=== PATIENT | female | born 1955 | race Caucasian/White ===

== ENCOUNTER 2017-10-26 23:57 | Inpatient (IN) | payer MEDICARE, OTHER ==
[~2017-10-26] VITALS: Ht 160 cm; Wt 95.5 kg
[~2017-10-26 23:57] MED LIST: LISI-230 PO; PREVCR VG
[2017-10-27] MEDS ORDERED: normal saline 1000ML IV soln IVB ONE (00:25)
[2017-10-27 01:11] LABS: BASOPHILS # (AUTO) 0.2 X10'3 (0-0.2); BASOPHILS % (AUTO) 0.9 % (0-1); EOSINOPHILS % (AUTO) 0.1 % (0-6); HEMATOCRIT 35.8 % (35.0-45.0); HEMOGLOBIN 12.1 g/dl (12.0-16.0); LYMPHOCYTES # (AUTO) 0.7 X10'3 (1.1-4.8); MEAN CORPUSCULAR HEMOGLOBIN 33.4 PG (27.0-31.0); MEAN CORPUSCULAR HGB CONC 33.9 % (33.0-36.5); MEAN CORPUSCULAR VOLUME 98.6 FL (78-98); MEAN PLATELET VOLUME 8.9 FL (7.4-10.4); MONOCYTES # (AUTO) 0.9 X10'3 (0-0.9); MONOCYTES % (AUTO) 4.1 % (2-12); NEUTROPHILS # (AUTO) 21.1 X10'3 (1.8-7.7); NEUTROPHILS % (AUTO) 91.9 % (42-75); PLATELET COUNT 260 X10'3 (140-440); RED BLOOD COUNT 3.63 X10'6 (4.20-5.60); RED CELL DISTRIBUTION WIDTH 16.1 % (11.5-14.5); WHITE BLOOD COUNT 22.9 X10'3 (4.5-11.0)
[2017-10-27 01:14] LABS: INR 0.9 INR; PARTIAL THROMBOPLASTIN TIME 24 SECONDS (22-32); PROTHROMBIN TIME 9.8 SECONDS (9.0-12.0)
[2017-10-27 01:17] LABS: ANION GAP 7 (8-16); BLOOD UREA NITROGEN 25 MG/DL (7-18); BUN/CREATININE RATIO 19.7 (6.6-38.0); CHLORIDE 105 MMOL/L (99-107); CREATININE 1.27 MG/DL (0.40-0.90); GLUCOSE 155 MG/DL (70-104); POTASSIUM 4.5 MMOL/L (3.5-5.1); SODIUM 139 MMOL/L (135-145)
[2017-10-27 01:18] LABS: ALANINE AMINOTRANSFERASE 22 U/L (12-78); ALBUMIN 3.2 G/DL (3.4-5.0); ALBUMIN/GLOBULIN RATIO 0.9 (1.1-1.5); ALKALINE PHOSPHATASE 120 IU/L (46-116); ASPARTATE AMINO TRANSFERASE 17 U/L (10-37); BILIRUBIN,TOTAL 0.4 MG/DL (0.1-1.0); LIPASE 192 U/L (73-393); MAGNESIUM 1.4 MG/DL (1.5-2.4); TOTAL PROTEIN 6.7 G/DL (6.4-8.2); eGFR 42 ML/MIN
[2017-10-27 01:24] LABS: PLATELET ESTIMATE NORMAL; TOTAL CELLS COUNTED 100
[2017-10-27] MEDS ORDERED: metroNIDAZOLE 500mg tablet PO ONE (01:55)
[2017-10-27] MEDS ORDERED: ondansetron/PF 4mg/2ml inj IV PRN (02:25)
[2017-10-27] MEDS ORDERED: acetaminophen 650mg rectal suppository RC PRN (02:25)
[2017-10-27] MEDS ORDERED: bisacodyl 10mg suppository rectal RC PRN (02:25)
[2017-10-27] MEDS ORDERED: HYDROmorphone 1 mg/ml syringe IV PRN ×2 (02:25)
[2017-10-27] MEDS ORDERED: acetaminophen 325mg tablet PO PRN (02:25)
[2017-10-27] MEDS ORDERED: magnesium 2GM in 50ml NS 50 ML IV PRN (02:25)
[2017-10-27] MEDS ORDERED: diphenhydrAMINE 25mg capsule PO PRN (02:25)
[2017-10-27] MEDS ORDERED: metoclopramide 5 mg/ml inj IV PRN (02:25)
[2017-10-27] MEDS ORDERED: mag hydrox/Alum hydrox/simeth 30ml oral suspension PO PRN (02:25)
[2017-10-27] MEDS ORDERED: morphine sulfate 8 MG/ML SYRINGE IV PRN ×2 (02:25)
[2017-10-27] MEDS ORDERED: magnesium 4gm in 100ml NS 100 ML IV PRN (02:25)
[2017-10-27] MEDS ORDERED: diphenhydrAMINE 50 mg/ml inj IV PRN (02:25)
[2017-10-27] MEDS ORDERED: magnesium hydroxide 30ml (MOM) UD suspension PO PRN (02:25)
[2017-10-27] MEDS ORDERED: magnesium Cl slow-release 64mg tablet PO PRN (02:25)
[2017-10-27 02:31] LABS: CLARITY,URINE Clear (Clear); COLOR,URINE Yellow (Yellow); GLUCOSE, URINE Negative (Neg); KETONES,URINE Negative (Neg); LEUKOCYTE ESTERASE ,URINE Negative (Neg); NITRITES, URINE Negative (Neg); OCCULT BLOOD,URINE Negative (Neg); PROTEIN,URINE Negative (Neg); UROBILINOGEN,URINE 0.2 E.U/dL (0.2-1.0)
[2017-10-27 02:32] LABS: UA COLLECTION TYPE CLN CATCH MIDSTREAM
[2017-10-27 02:45] LABS: URINE AMPHETAMINE SCREEN NEGATIVE (Neg); URINE BARBITUATE SCREEN NEGATIVE (Neg); URINE BENZODIAZEPINES SCREEN NEGATIVE (Neg); URINE CANNABINOID SCREEN NEGATIVE (Neg); URINE COCAINE SCREEN NEGATIVE (Neg); URINE METHADONE SCREEN NEGATIVE (Neg); URINE OPIATE SCREEN NEGATIVE (Neg); URINE PHENCYCLIDINE SCREEN NEGATIVE (Neg)
[2017-10-27 03:15] VITALS: BP 148/70
[2017-10-27] MEDS: HYDROcodone/acetaminophen 10/325mg tab PO PRN ×2 (03:31→20:23)
[2017-10-27] MEDS: normal saline 1000ml 1,000 ML IV SCH ×3 (04:49→23:44)
[2017-10-27 07:03] VITALS: BP 136/68
[2017-10-27] MEDS: docusate sod 100mg capsule PO SCH ×2 (08:00→20:00)
[2017-10-27 09:06] LABS: OCCULT BLOOD STOOL NEGATIVE (Neg)
[2017-10-27] MEDS: levoFLOXACIN-Levaquin 500mg/D5 100 ML IV SCH (09:39)
[2017-10-27] MEDS: heparin, porcine 5000 units/ml vial SQ SCH ×2 (09:40→20:23)
[2017-10-27] MEDS: pantoprazole 40mg Tablet.DR PO SCH (09:40)
[2017-10-27 12:23] VITALS: BP 149/71
[2017-10-27] MEDS: vancomycin 250MG/10ML UD oral solution 10ML BOTTLE PO SCH ×2 (15:42→20:23)
[2017-10-27] MEDS: lactobacillus rhamnosus 10,000 MMU CELLS/CAPSULE PO SCH (16:40)
[2017-10-27 18:00] VITALS: BP 126/59
[2017-10-27 20:00] VITALS: BP 126/59
[2017-10-27] MEDS ORDERED: temazepam 15mg capsule PO PRN (21:00)
[2017-10-28] VITALS: BP 110/66
[2017-10-28] MEDS: vancomycin 250MG/10ML UD oral solution 10ML BOTTLE PO SCH ×4 (02:45→20:09)
[2017-10-28 05:40] LABS: BASOPHILS % (AUTO) 0.3 % (0-1); EOSINOPHILS # (AUTO) 0.4 X10'3 (0-0.9); EOSINOPHILS % (AUTO) 2.8 % (0-6); HEMOGLOBIN 9.9 g/dl (12.0-16.0); LYMPHOCYTES # (AUTO) 1.8 X10'3 (1.1-4.8); LYMPHOCYTES % (AUTO) 13.9 % (21-51); MEAN CORPUSCULAR HEMOGLOBIN 33.2 PG (27.0-31.0); MEAN CORPUSCULAR HGB CONC 32.8 % (33.0-36.5); MEAN PLATELET VOLUME 8.5 FL (7.4-10.4); MONOCYTES # (AUTO) 0.9 X10'3 (0-0.9); MONOCYTES % (AUTO) 6.8 % (2-12); NEUTROPHILS # (AUTO) 9.6 X10'3 (1.8-7.7); NEUTROPHILS % (AUTO) 76.2 % (42-75); PLATELET COUNT 194 X10'3 (140-440); RED BLOOD COUNT 2.97 X10'6 (4.20-5.60); RED CELL DISTRIBUTION WIDTH 16.6 % (11.5-14.5); WHITE BLOOD COUNT 12.6 X10'3 (4.5-11.0)
[2017-10-28 06:10] LABS: ALANINE AMINOTRANSFERASE 16 U/L (12-78); ALBUMIN 2.3 G/DL (3.4-5.0); ALBUMIN/GLOBULIN RATIO 0.7 (1.1-1.5); ALKALINE PHOSPHATASE 95 IU/L (46-116); ANION GAP 5 (8-16); ASPARTATE AMINO TRANSFERASE 14 U/L (10-37); BILIRUBIN,TOTAL 0.4 MG/DL (0.1-1.0); BLOOD UREA NITROGEN 23 MG/DL (7-18); CALCIUM 8.8 MG/DL (8.5-10.1); CHLORIDE 109 MMOL/L (99-107); GLUCOSE 120 MG/DL (70-104); MAGNESIUM 1.6 MG/DL (1.5-2.4); POTASSIUM 4.6 MMOL/L (3.5-5.1); SODIUM 140 MMOL/L (135-145); TOTAL CARBON DIOXIDE 26.4 MMOL/L (24-32); TOTAL PROTEIN 5.8 G/DL (6.4-8.2); eGFR 56 ML/MIN
[2017-10-28 07:00] VITALS: BP 101/54
[2017-10-28] MEDS: pantoprazole 40mg Tablet.DR PO SCH (08:18)
[2017-10-28] MEDS: levoFLOXACIN-Levaquin 500mg/D5 100 ML IV SCH (08:18)
[2017-10-28] MEDS: lactobacillus rhamnosus 10,000 MMU CELLS/CAPSULE PO SCH ×2 (08:18→16:54)
[2017-10-28] MEDS: docusate sod 100mg capsule PO SCH ×2 (08:18→20:09)
[2017-10-28] MEDS: heparin, porcine 5000 units/ml vial SQ SCH ×2 (08:19→20:08)
[2017-10-28] MEDS: normal saline 1000ml 1,000 ML IV SCH ×3 (08:31→20:29)
[2017-10-28 11:00] VITALS: BP 113/55
[2017-10-28] MEDS: HYDROcodone/acetaminophen 10/325mg tab PO PRN (15:28)
[2017-10-28 18:00] VITALS: BP 118/69
[2017-10-28] MEDS: HYDROcodone/acetaminophen 5mg/325mg tablet PO PRN (20:09)
[2017-10-29] VITALS: BP 120/67
[2017-10-29] MEDS: normal saline 1000ml 1,000 ML IV SCH ×2 (05:10→17:40)
[2017-10-29 06:47] LABS: BASOPHILS % (AUTO) 0.3 % (0-1); EOSINOPHILS # (AUTO) 0.5 X10'3 (0-0.9); EOSINOPHILS % (AUTO) 4.1 % (0-6); HEMATOCRIT 31.7 % (35.0-45.0); HEMOGLOBIN 10.4 g/dl (12.0-16.0); LYMPHOCYTES # (AUTO) 1.3 X10'3 (1.1-4.8); LYMPHOCYTES % (AUTO) 10.9 % (21-51); MEAN CORPUSCULAR HGB CONC 32.8 % (33.0-36.5); MEAN CORPUSCULAR VOLUME 100.8 FL (78-98); MEAN PLATELET VOLUME 8.7 FL (7.4-10.4); MONOCYTES # (AUTO) 0.6 X10'3 (0-0.9); MONOCYTES % (AUTO) 5.1 % (2-12); NEUTROPHILS # (AUTO) 9.1 X10'3 (1.8-7.7); NEUTROPHILS % (AUTO) 79.6 % (42-75); PLATELET COUNT 203 X10'3 (140-440); RED BLOOD COUNT 3.15 X10'6 (4.20-5.60); RED CELL DISTRIBUTION WIDTH 16.2 % (11.5-14.5); WHITE BLOOD COUNT 11.5 X10'3 (4.5-11.0)
[2017-10-29 07:00] VITALS: BP 155/80
[2017-10-29 07:19] LABS: ALANINE AMINOTRANSFERASE 21 U/L (12-78); ALBUMIN 2.5 G/DL (3.4-5.0); ALBUMIN/GLOBULIN RATIO 0.7 (1.1-1.5); ALKALINE PHOSPHATASE 86 IU/L (46-116); ANION GAP 8 (8-16); ASPARTATE AMINO TRANSFERASE 12 U/L (10-37); BILIRUBIN,TOTAL 0.4 MG/DL (0.1-1.0); BLOOD UREA NITROGEN 24 MG/DL (7-18); BUN/CREATININE RATIO 24.5 (6.6-38.0); CALCIUM 9.4 MG/DL (8.5-10.1); CHLORIDE 108 MMOL/L (99-107); CREATININE 0.98 MG/DL (0.40-0.90); GLUCOSE 127 MG/DL (70-104); MAGNESIUM 1.6 MG/DL (1.5-2.4); POTASSIUM 4.6 MMOL/L (3.5-5.1); SODIUM 142 MMOL/L (135-145); TOTAL CARBON DIOXIDE 26.1 MMOL/L (24-32); TOTAL PROTEIN 6.1 G/DL (6.4-8.2); eGFR 57 ML/MIN
[2017-10-29] MEDS: heparin, porcine 5000 units/ml vial SQ SCH ×2 (08:00→19:38)
[2017-10-29] MEDS: lactobacillus rhamnosus 10,000 MMU CELLS/CAPSULE PO SCH ×2 (08:17→17:35)
[2017-10-29] MEDS: levoFLOXACIN-Levaquin 500mg/D5 100 ML IV SCH (08:17)
[2017-10-29] MEDS: docusate sod 100mg capsule PO SCH ×2 (08:17→19:38)
[2017-10-29] MEDS: pantoprazole 40mg Tablet.DR PO SCH (08:17)
[2017-10-29] MEDS: HYDROcodone/acetaminophen 10/325mg tab PO PRN (08:22)
[2017-10-29] MEDS ORDERED: iohexol 300mg/ml 100ml inj. ONE (10:01)
[2017-10-29 11:00] VITALS: BP 100/52
[2017-10-29 18:00] VITALS: BP 126/66
[2017-10-29] MEDS: HYDROcodone/acetaminophen 5mg/325mg tablet PO PRN (19:46)
[2017-10-30] VITALS: BP 107/71
[2017-10-30] MEDS: normal saline 1000ml 1,000 ML IV SCH ×2 (03:07→20:24)
[2017-10-30 06:08] LABS: BASOPHILS % (AUTO) 0.2 % (0-1); EOSINOPHILS # (AUTO) 0.4 X10'3 (0-0.9); EOSINOPHILS % (AUTO) 3.6 % (0-6); HEMATOCRIT 32.7 % (35.0-45.0); HEMOGLOBIN 10.8 g/dl (12.0-16.0); LYMPHOCYTES # (AUTO) 1.8 X10'3 (1.1-4.8); LYMPHOCYTES % (AUTO) 17.3 % (21-51); MEAN CORPUSCULAR HEMOGLOBIN 33.2 PG (27.0-31.0); MEAN CORPUSCULAR HGB CONC 32.9 % (33.0-36.5); MEAN PLATELET VOLUME 8.5 FL (7.4-10.4); MONOCYTES # (AUTO) 0.7 X10'3 (0-0.9); MONOCYTES % (AUTO) 6.4 % (2-12); NEUTROPHILS # (AUTO) 7.4 X10'3 (1.8-7.7); NEUTROPHILS % (AUTO) 72.5 % (42-75); PLATELET COUNT 220 X10'3 (140-440); RED BLOOD COUNT 3.24 X10'6 (4.20-5.60); RED CELL DISTRIBUTION WIDTH 15.9 % (11.5-14.5); WHITE BLOOD COUNT 10.2 X10'3 (4.5-11.0)
[2017-10-30 06:30] LABS: ALANINE AMINOTRANSFERASE 21 U/L (12-78); ALBUMIN 2.6 G/DL (3.4-5.0); ALBUMIN/GLOBULIN RATIO 0.7 (1.1-1.5); ALKALINE PHOSPHATASE 90 IU/L (46-116); ANION GAP 9 (8-16); ASPARTATE AMINO TRANSFERASE 14 U/L (10-37); BILIRUBIN,TOTAL 0.3 MG/DL (0.1-1.0); BLOOD UREA NITROGEN 28 MG/DL (7-18); BUN/CREATININE RATIO 23.5 (6.6-38.0); CALCIUM 9.2 MG/DL (8.5-10.1); CHLORIDE 107 MMOL/L (99-107); CREATININE 1.19 MG/DL (0.40-0.90); GLUCOSE 107 MG/DL (70-104); MAGNESIUM 1.6 MG/DL (1.5-2.4); POTASSIUM 4.6 MMOL/L (3.5-5.1); SODIUM 142 MMOL/L (135-145); TOTAL CARBON DIOXIDE 26.1 MMOL/L (24-32); TOTAL PROTEIN 6.4 G/DL (6.4-8.2); eGFR 46 ML/MIN
[2017-10-30 07:34] VITALS: BP 111/63
[2017-10-30] MEDS: docusate sod 100mg capsule PO SCH ×2 (08:00→19:33)
[2017-10-30] MEDS: heparin, porcine 5000 units/ml vial SQ SCH ×2 (08:54→19:33)
[2017-10-30] MEDS: lactobacillus rhamnosus 10,000 MMU CELLS/CAPSULE PO SCH ×2 (08:54→17:31)
[2017-10-30] MEDS: pantoprazole 40mg Tablet.DR PO SCH (08:54)
[2017-10-30] MEDS: HYDROcodone/acetaminophen 5mg/325mg tablet PO PRN ×2 (08:55→19:33)
[2017-10-30] MEDS ORDERED: levoFLOXACIN 500mg tablet PO SCH (11:00)
[2017-10-30 18:00] VITALS: BP 123/62
[2017-10-31] VITALS: BP 113/58
[2017-10-31 06:14] LABS: BASOPHILS % (AUTO) 0.2 % (0-1); EOSINOPHILS # (AUTO) 0.3 X10'3 (0-0.9); EOSINOPHILS % (AUTO) 3.3 % (0-6); HEMATOCRIT 32.9 % (35.0-45.0); HEMOGLOBIN 10.8 g/dl (12.0-16.0); LYMPHOCYTES # (AUTO) 1.9 X10'3 (1.1-4.8); LYMPHOCYTES % (AUTO) 19.6 % (21-51); MEAN CORPUSCULAR HEMOGLOBIN 32.9 PG (27.0-31.0); MEAN CORPUSCULAR HGB CONC 32.8 % (33.0-36.5); MEAN CORPUSCULAR VOLUME 100.2 FL (78-98); MEAN PLATELET VOLUME 8.6 FL (7.4-10.4); MONOCYTES # (AUTO) 0.7 X10'3 (0-0.9); MONOCYTES % (AUTO) 7.6 % (2-12); NEUTROPHILS # (AUTO) 6.7 X10'3 (1.8-7.7); NEUTROPHILS % (AUTO) 69.3 % (42-75); PLATELET COUNT 248 X10'3 (140-440); RED BLOOD COUNT 3.28 X10'6 (4.20-5.60); RED CELL DISTRIBUTION WIDTH 16.4 % (11.5-14.5); WHITE BLOOD COUNT 9.7 X10'3 (4.5-11.0)
[2017-10-31] MEDS: normal saline 1000ml 1,000 ML IV SCH (06:24)
[2017-10-31 06:32] LABS: ALANINE AMINOTRANSFERASE 23 U/L (12-78); ALBUMIN 2.7 G/DL (3.4-5.0); ALBUMIN/GLOBULIN RATIO 0.7 (1.1-1.5); ALKALINE PHOSPHATASE 93 IU/L (46-116); ANION GAP 9 (8-16); ASPARTATE AMINO TRANSFERASE 15 U/L (10-37); BILIRUBIN,TOTAL 0.2 MG/DL (0.1-1.0); BLOOD UREA NITROGEN 36 MG/DL (7-18); BUN/CREATININE RATIO 27.5 (6.6-38.0); CALCIUM 9.8 MG/DL (8.5-10.1); CHLORIDE 106 MMOL/L (99-107); CREATININE 1.31 MG/DL (0.40-0.90); GLUCOSE 103 MG/DL (70-104); MAGNESIUM 1.8 MG/DL (1.5-2.4); POTASSIUM 4.6 MMOL/L (3.5-5.1); SODIUM 142 MMOL/L (135-145); TOTAL CARBON DIOXIDE 27.4 MMOL/L (24-32); TOTAL PROTEIN 6.5 G/DL (6.4-8.2); eGFR 41 ML/MIN
[2017-10-31 06:59] VITALS: BP 120/69
[2017-10-31] MEDS: heparin, porcine 5000 units/ml vial SQ SCH (08:00)
[2017-10-31] MEDS: docusate sod 100mg capsule PO SCH (08:00)
[2017-10-31] MEDS: lactobacillus rhamnosus 10,000 MMU CELLS/CAPSULE PO SCH (08:56)
[2017-10-31] MEDS: pantoprazole 40mg Tablet.DR PO SCH (08:56)
[2017-10-31] MEDS ORDERED: levoFLOXACIN 250mg tablet PO SCH (11:00)
[2017-10-31 11:30] VITALS: BP 139/77
[2017-10-31] MEDS ORDERED: KEF125L PO (15:40)
== END 2017-10-31 16:45 | disposition home or self-care (01) | DRG 871 ==
LOC: ER 23:58 → ED HOLD 10-27 02:24 → MED 3N 10-27 03:15
PROVIDERS: ADMIT Family Medicine; ATTEND Internal Medicine
DX: A41.9 Sepsis, unspecified organism (principal); R65.21 Severe sepsis with septic shock; N17.9 Acute kidney failure, unspecified; J18.1 Lobar pneumonia, unspecified organism; E86.1 Hypovolemia; L03.116 Cellulitis of left lower limb; K46.9 Unspecified abdominal hernia without obstruction or gangrene; I89.0 Lymphedema, not elsewhere classified; I10 Essential (primary) hypertension; R19.7 Diarrhea, unspecified; E83.42 Hypomagnesemia; D64.9 Anemia, unspecified; F17.210 Nicotine dependence, cigarettes, uncomplicated; Z60.2 Problems related to living alone; Z59.0 Homelessness; Z90.710 Acquired absence of both cervix and uterus; Z90.49 Acquired absence of other specified parts of digestive tract
CPT/HCPCS: 36415; 71010; 71260; 74176; 80053; 80305; 81003; 82272; 83605; 83690; 83735; 83880; 85025; 85610; 85730; 87040; 87045; 87046; 87070; 87077; 87186; 89055; 93005; 93306; 99285; J1644; J1956; J2270; J3490; J7030; Q9967

== ENCOUNTER 2021-03-13 14:34 | Emergency (ER) | payer MEDICARE, OTHER ==
[~2021-03-13] VITALS: Ht 160 cm; Wt 77.3 kg
[~2021-03-13 14:34] MED LIST changes: +KEF125L PO; -LISI-230 PO; -PREVCR VG
[2021-03-13 15:10] LABS: BASOPHILS % (AUTO) 0.6 % (0-1); EOSINOPHILS # (AUTO) 0.2 X10'3 (0-0.9); EOSINOPHILS % (AUTO) 3.4 % (0-6); HEMATOCRIT 37.1 % (35.0-45.0); HEMOGLOBIN 12.5 g/dl (12.0-16.0); LYMPHOCYTES # (AUTO) 1.6 X10'3 (1.1-4.8); LYMPHOCYTES % (AUTO) 22.6 % (21-51); MEAN CORPUSCULAR HEMOGLOBIN 32.7 PG (27.0-31.0); MEAN CORPUSCULAR HGB CONC 33.7 g/dL (33.0-36.5); MEAN PLATELET VOLUME 9.2 FL (7.4-10.4); MONOCYTES # (AUTO) 0.5 X10'3 (0-0.9); MONOCYTES % (AUTO) 6.4 % (2-12); NEUTROPHILS # (AUTO) 4.9 X10'3 (1.8-7.7); PLATELET COUNT 168 X10'3 (140-440); RED BLOOD COUNT 3.83 X10'6 (4.20-5.60); RED CELL DISTRIBUTION WIDTH 13.3 % (11.5-14.5); WHITE BLOOD COUNT 7.3 X10'3 (4.5-11.0)
[2021-03-13 15:19] LABS: D-DIMER 0.39 MG/L FEU (0-0.50)
--- NOTE | 2021-03-13 15:19 | NUR ---
VASCULAR AT BEDSIDE
[2021-03-13 15:32] LABS: ALANINE AMINOTRANSFERASE 28 U/L (12-78); ALBUMIN 3.4 G/DL (3.4-5.0); ALBUMIN/GLOBULIN RATIO 1.2 (1.1-1.5); ALKALINE PHOSPHATASE 95 IU/L (46-116); ANION GAP 8 (8-16); ASPARTATE AMINO TRANSFERASE 15 U/L (10-37); BILIRUBIN,TOTAL 0.3 MG/DL (0.1-1.0); BLOOD UREA NITROGEN 29 MG/DL (7-18); CALCIUM 8.7 MG/DL (8.5-10.1); CHLORIDE 107 MMOL/L (99-107); CREATININE 1.26 MG/DL (0.40-0.90); GLUCOSE 125 MG/DL (70-104); POTASSIUM 3.9 MMOL/L (3.5-5.1); SODIUM 140 MMOL/L (135-145); TOTAL CARBON DIOXIDE 25.4 MMOL/L (24-32); TOTAL PROTEIN 6.3 G/DL (6.4-8.2); eGFR 42 ML/MIN
[2021-03-13] MEDS ORDERED: PERM60CR19 TP (16:37)
[2021-03-13 17:03] VITALS: BP 95/49
--- NOTE | 2021-03-13 17:03 | NUR ---
no urine needed at this time per md Huber
--- NOTE | 2021-03-13 17:03 | NUR ---
Since arrival pt placed on isolation for bedbugs
== END 2021-03-13 17:04 | disposition home or self-care (01) ==
LOC: ER 14:35
DX: R07.89 Other chest pain (principal); B88.8 Other specified infestations; I89.0 Lymphedema, not elsewhere classified; N17.9 Acute kidney failure, unspecified; I10 Essential (primary) hypertension; J44.9 Chronic obstructive pulmonary disease, unspecified; F41.9 Anxiety disorder, unspecified; Z90.49 Acquired absence of other specified parts of digestive tract; Z90.710 Acquired absence of both cervix and uterus; Z90.89 Acquired absence of other organs; Z59.0 Homelessness; Z60.2 Problems related to living alone; Z79.899 Other long term (current) drug therapy
CPT/HCPCS: 36415; 70450; 71045; 80053; 83880; 84484; 85025; 85379; 93005; 93971; 99285

== ENCOUNTER 2021-07-11 18:19 | Inpatient (IN) | payer MEDICARE, OTHER ==
[~2021-07-11] VITALS: Ht 160 cm; Wt 64.9 kg
[2021-07-11] MEDS ORDERED: ondansetron/PF 4mg/2ml inj IV ONE ×2 (18:25→19:15)
[2021-07-11] MEDS ORDERED: IOHEXOL 12MG/ML oral solution 500 ML BOTTLE PO ONE (18:25)
[2021-07-11] MEDS ORDERED: normal saline 1000ML IV soln IVB ONE (18:25)
[2021-07-11 19:04] LABS: BASOPHILS % (AUTO) 0.4 % (0-1); EOSINOPHILS # (AUTO) 0.2 X10'3 (0-0.9); EOSINOPHILS % (AUTO) 1.9 % (0-6); HEMATOCRIT 40.9 % (35.0-45.0); HEMOGLOBIN 13.5 g/dl (12.0-16.0); LYMPHOCYTES # (AUTO) 1.4 X10'3 (1.1-4.8); LYMPHOCYTES % (AUTO) 13.2 % (21-51); MEAN CORPUSCULAR HEMOGLOBIN 31.5 PG (27.0-31.0); MEAN CORPUSCULAR HGB CONC 33.1 g/dL (33.0-36.5); MEAN CORPUSCULAR VOLUME 95.2 FL (78-98); MEAN PLATELET VOLUME 8.2 FL (7.4-10.4); MONOCYTES # (AUTO) 0.6 X10'3 (0-0.9); MONOCYTES % (AUTO) 5.5 % (2-12); NEUTROPHILS # (AUTO) 8.5 X10'3 (1.8-7.7); PLATELET COUNT 296 X10'3 (140-440); RED CELL DISTRIBUTION WIDTH 13.1 % (11.5-14.5); WHITE BLOOD COUNT 10.8 X10'3 (4.5-11.0)
[2021-07-11] MEDS ORDERED: morphine 4 MG/ML inj SYRINge IV PRN ×2 (19:15→20:15)
[2021-07-11] MEDS ORDERED: piperacillin/tazo 3.375gm/50ml 50 ML IV ONE (19:15)
[2021-07-11 19:32] LABS: ALANINE AMINOTRANSFERASE 39 U/L (12-78); ALBUMIN 3.4 G/DL (3.4-5.0); ALBUMIN/GLOBULIN RATIO 0.8 (1.1-1.5); ALKALINE PHOSPHATASE 118 IU/L (46-116); ANION GAP 9 (8-16); ASPARTATE AMINO TRANSFERASE 24 U/L (10-37); BILIRUBIN,TOTAL 0.2 MG/DL (0.1-1.0); BLOOD UREA NITROGEN 29 MG/DL (7-18); CALCIUM 9.6 MG/DL (8.5-10.1); CHLORIDE 105 MMOL/L (99-107); CREATININE 1.53 MG/DL (0.40-0.90); GLUCOSE 129 MG/DL (70-104); LIPASE 221 U/L (73-393); POTASSIUM 3.7 MMOL/L (3.5-5.1); SODIUM 147 MMOL/L (135-145); TOTAL CARBON DIOXIDE 32.6 MMOL/L (24-32); TOTAL PROTEIN 7.5 G/DL (6.4-8.2); eGFR 34 ML/MIN
[2021-07-11] MEDS: docusate sod 100mg capsule PO SCH (20:00)
[2021-07-11] MEDS ORDERED: acetaminophen 325mg tablet PO PRN ×2 (20:00)
[2021-07-11] MEDS ORDERED: ondansetron/PF 4mg/2ml inj IV PRN ×2 (20:00→20:15)
[2021-07-11] MEDS ORDERED: ondansetron 4mg rapidly disintigrating tab PO PRN (20:00)
[2021-07-11] MEDS ORDERED: mag hydrox/Alum hydrox/simeth 30ml oral suspension PO PRN (20:00)
[2021-07-11] MEDS ORDERED: morphine 2 MG/ML inj. syringe IV PRN ×3 (20:00→20:15)
[2021-07-11] MEDS ORDERED: HYDROmorphone inj. 0.5 MG/0.5 ML DISP.SYRIN IV PRN (20:00)
[2021-07-11] MEDS ORDERED: bisacodyl 10mg suppository rectal RC PRN (20:00)
[2021-07-11] MEDS ORDERED: HYDROcodone/acetaminophen 5mg/325mg tablet PO PRN (20:00)
[2021-07-11] MEDS ORDERED: magnesium hydroxide 30ml (MOM) UD suspension PO PRN (20:00)
[2021-07-11] MEDS: piperacillin/tazo 4.5gm/100ml 100 ML IV SCH (20:00)
[2021-07-11] MEDS ORDERED: diphenhydrAMINE 25mg capsule PO PRN (20:00)
[2021-07-11] MEDS ORDERED: diphenhydrAMINE 50 mg/ml inj IV PRN (20:00)
[2021-07-11] MEDS ORDERED: acetaminophen 650mg rectal suppository RC PRN (20:00)
[2021-07-11] MEDS ORDERED: midazolam 1 mg/ML 2ml injection ONE (20:10)
[2021-07-11] MEDS ORDERED: fentaNYL /PF 50mcg/ml 5ml ampule ONE (20:11)
[2021-07-11] MEDS ORDERED: famotidine/PF 10 mg/ml inj IV ONE (20:12)
[2021-07-11] MEDS ORDERED: BUPIVAcaine/PF 2.5mg/ml (0.25%) 10ml vial ONE (20:13)
[2021-07-11] MEDS ORDERED: BUPIVACAINE liposomal/PF 13.3 MG/ML vial IM ONE (20:13)
[2021-07-11] MEDS ORDERED: acetaminophen 1,000mg/100ml IV 100 ML IV PRN (20:15)
[2021-07-11] MEDS ORDERED: meperidine/PF 25mg/ml syringe IV PRN ×3 (20:15)
[2021-07-11] MEDS ORDERED: proCHLORperazine 10 MG/2 ml inj IV PRN (20:15)
[2021-07-11] MEDS ORDERED: labetalol 20mg/4ml (5mg/ml) syringe IV PRN (20:15)
[2021-07-11] MEDS ORDERED: hydrALAZINE 20mg/ml inj. IV PRN (20:15)
[2021-07-11] MEDS ORDERED: ringers solution, lacted 1,000 ML IV SCH (20:15)
[2021-07-11 20:20] LABS: PARTIAL THROMBOPLASTIN TIME 25 SECONDS (22-32)
[2021-07-11] MEDS ORDERED: sevoflurane 250ml liquid IH ONE (20:20)
[2021-07-11 20:28] LABS: MAGNESIUM 2.2 MG/DL (1.5-2.4); PHOSPHORUS 4.2 MG/DL (2.3-4.5)
[2021-07-11] MEDS ORDERED: ePHEDrine 50MG/ML INJ. ONE (20:48)
[2021-07-11] MEDS ORDERED: 0.9 % SODIUM CHLORIDE 10 ML VIAL ONE (20:48)
[2021-07-11] MEDS ORDERED: LIDOcaine 2% (20mg/ml) 5ml vial ONE (20:48)
[2021-07-11] MEDS ORDERED: rocuronium 10mg/ml inj IV ONE (20:49)
[2021-07-11] MEDS ORDERED: propofol inj 20 ML IV ONE (20:49)
[2021-07-11] MEDS ORDERED: ondansetron/PF 4mg/2ml inj ONE (21:00)
[2021-07-11] MEDS ORDERED: dexamethasone sod phosphate 4mg/ml inj. ONE (21:00)
[2021-07-11] MEDS ORDERED: temazepam 15mg capsule PO PRN (21:00)
[2021-07-11] MEDS ORDERED: sugammadex 200mg/2ml injection IV ONE (21:30)
[2021-07-11 21:41] VITALS: BP 152/83
--- NOTE | 2021-07-11 21:41 | NUR ---
ASSUME CARE PT AWAKE VSS NO DISTRESS DENIES PAIN ISLAND DRESSING TO ABD INTACT, NGT TO INTERMIT LWS PER ORDER SLOAN WELL. IV TO R AC 20 INTACT EVANS CATH TO GRAVITY DRAINING CLEAR YELLOW URINE. CONT TO MONITOR. Addendum: 07/11/21 at 2208 by Leida Wade RN Amended: Links added.
[2021-07-11 21:51] VITALS: BP 140/80
[2021-07-11 22:01] VITALS: BP 132/68
--- NOTE | 2021-07-11 22:07 | NUR ---
PT MORE AWAKE VSS STATES SURGICAL SITE PAIN 01/09 REFUSE PAIN MED, REPOSITION. MEETS CRITERIA TO DC TO ROOM REPORT CALLED. Addendum: 07/11/21 at 2208 by Leida Wade RN Amended: Links added.
[2021-07-11 22:11] VITALS: BP 128/60
[2021-07-11 22:21] VITALS: BP 135/80
[2021-07-11 22:30] VITALS: BP 137/70
--- NOTE | 2021-07-11 22:30 | NUR ---
PATIENT ARRIVED ON THE UNIT FROM OR WITH NO APPARENT DISTRESS. VITAL SIGNS STABLE AND DENIED ANY DISCOMFORT. WILL CONTINUE TO MONITOR.
[2021-07-12] MEDS: normal saline 1000ml 1,000 ML IV SCH ×3 (00:18→15:09)
[2021-07-12 02:00] VITALS: BP 116/41
[2021-07-12 04:00] VITALS: BP 120/52
--- NOTE | 2021-07-12 04:39 | NUR ---
UNABLE TO RETRIEVE POST OP VITAL SIGNS. SOMEHOW THE MACHINE MALFUNCTIONED AND DID NOT SHOW ANY RECORDS. ROUTINE VITALS DOCUMENTED PER HOSPITAL POLICY.
[2021-07-12 06:00] VITALS: BP 107/57
--- NOTE | 2021-07-12 06:11 | NUR ---
Problems reprioritized. Patient report given, questions answered & plan of care reviewed with JANINE RN.
--- NOTE | 2021-07-12 06:15 | NUR ---
Patient in room PCU 3014. I have received report from DOT Wong and had the opportunity to ask questions and assume patient care.
[2021-07-12 07:01] LABS: BASOPHILS % (AUTO) 0 % (0-1); EOSINOPHILS % (AUTO) 0 % (0-6); HEMATOCRIT 36.5 % (35.0-45.0); LYMPHOCYTES # (AUTO) 0.4 X10'3 (1.1-4.8); LYMPHOCYTES % (AUTO) 2.6 % (21-51); MEAN CORPUSCULAR HEMOGLOBIN 31.5 PG (27.0-31.0); MEAN CORPUSCULAR HGB CONC 32.9 g/dL (33.0-36.5); MEAN CORPUSCULAR VOLUME 95.7 FL (78-98); MEAN PLATELET VOLUME 8.4 FL (7.4-10.4); MONOCYTES # (AUTO) 0.4 X10'3 (0-0.9); MONOCYTES % (AUTO) 2.4 % (2-12); NEUTROPHILS # (AUTO) 16.1 X10'3 (1.8-7.7); PLATELET COUNT 252 X10'3 (140-440); RED BLOOD COUNT 3.82 X10'6 (4.20-5.60); RED CELL DISTRIBUTION WIDTH 13.4 % (11.5-14.5)
[2021-07-12 07:22] LABS: ALANINE AMINOTRANSFERASE 34 U/L (12-78); ALBUMIN 2.7 G/DL (3.4-5.0); ALBUMIN/GLOBULIN RATIO 0.8 (1.1-1.5); ALKALINE PHOSPHATASE 106 IU/L (46-116); ANION GAP 7 (8-16); ASPARTATE AMINO TRANSFERASE 19 U/L (10-37); BILIRUBIN,TOTAL 0.2 MG/DL (0.1-1.0); BLOOD UREA NITROGEN 25 MG/DL (7-18); BUN/CREATININE RATIO 18.7 (6.6-38.0); CALCIUM 8.1 MG/DL (8.5-10.1); CHLORIDE 110 MMOL/L (99-107); CREATININE 1.34 MG/DL (0.40-0.90); GLUCOSE 188 MG/DL (70-104); POTASSIUM 4.2 MMOL/L (3.5-5.1); SODIUM 145 MMOL/L (135-145); TOTAL PROTEIN 5.9 G/DL (6.4-8.2); eGFR 39 ML/MIN
[2021-07-12 07:28] LABS: PLATELET ESTIMATE NORMAL; TOTAL CELLS COUNTED 100
[2021-07-12] MEDS: pantoprazole 40 MG vial IV SCH (08:21)
[2021-07-12] MEDS: docusate sod 100mg capsule PO SCH ×2 (08:22→20:05)
[2021-07-12] MEDS: piperacillin/tazo 4.5gm/100ml 100 ML IV SCH ×2 (08:22→16:19)
--- NOTE | 2021-07-12 10:40 | NUR ---
D/C nasogastric tube Per Dr. Dueñas pull the NG tube and give clear liquids ONLY.
[2021-07-12 11:00] VITALS: BP 110/63
--- NOTE | 2021-07-12 11:55 | NUR ---
Paged Dr. Baez PAGER ID: [phone] MESSAGE: YAIMA Coyne [id number]; patient's left leg swollen, hot and red. Pt states this is new. Shauna CHRIS [phone]
[2021-07-12] MEDS ORDERED: NO HOME MEDS (12:32)
[2021-07-12 15:00] VITALS: BP 107/52
[2021-07-12] MEDS: HYDROcodone/acetaminophen 10/325mg tab PO PRN ×2 (15:07→20:54)
[2021-07-12 18:00] VITALS: BP 113/50
--- NOTE | 2021-07-12 18:47 | NUR ---
Problems reprioritized. Patient report given, questions answered & plan of care reviewed with DOT Miramontes.
[2021-07-12] MEDS: lactobacillus rhamnosus 10,000 MMU CELLS/CAPSULE PO SCH (20:05)
[2021-07-12] MEDS: cephalexin 500mg capsule PO SCH (20:05)
[2021-07-13] MEDS: piperacillin/tazo 4.5gm/100ml 100 ML IV SCH ×3 (01:37→16:55)
[2021-07-13] MEDS: normal saline 1000ml 1,000 ML IV SCH ×3 (01:43→21:45)
[2021-07-13] MEDS: cephalexin 500mg capsule PO SCH ×4 (01:46→21:42)
[2021-07-13 02:00] VITALS: BP 102/61
--- NOTE | 2021-07-13 02:58 | NUR ---
reviewed and edited assessment
--- NOTE | 2021-07-13 06:33 | NUR ---
Problems reprioritized. Patient report given, questions answered & plan of care reviewed with Cate RN.
[2021-07-13 06:40] LABS: BASOPHILS % (AUTO) 0.1 % (0-1); EOSINOPHILS # (AUTO) 0.1 X10'3 (0-0.9); EOSINOPHILS % (AUTO) 0.6 % (0-6); HEMATOCRIT 30.9 % (35.0-45.0); HEMOGLOBIN 10.4 g/dl (12.0-16.0); LYMPHOCYTES # (AUTO) 1.6 X10'3 (1.1-4.8); MEAN CORPUSCULAR HEMOGLOBIN 31.9 PG (27.0-31.0); MEAN CORPUSCULAR HGB CONC 33.8 g/dL (33.0-36.5); MEAN CORPUSCULAR VOLUME 94.5 FL (78-98); MEAN PLATELET VOLUME 8.3 FL (7.4-10.4); MONOCYTES # (AUTO) 0.4 X10'3 (0-0.9); MONOCYTES % (AUTO) 4.5 % (2-12); NEUTROPHILS # (AUTO) 7.6 X10'3 (1.8-7.7); NEUTROPHILS % (AUTO) 78.8 % (42-75); PLATELET COUNT 214 X10'3 (140-440); RED BLOOD COUNT 3.27 X10'6 (4.20-5.60); RED CELL DISTRIBUTION WIDTH 13.4 % (11.5-14.5); WHITE BLOOD COUNT 9.7 X10'3 (4.5-11.0)
[2021-07-13 06:51] LABS: ALANINE AMINOTRANSFERASE 26 U/L (12-78); ALBUMIN 2.4 G/DL (3.4-5.0); ALBUMIN/GLOBULIN RATIO 0.8 (1.1-1.5); ALKALINE PHOSPHATASE 81 IU/L (46-116); ANION GAP 10 (8-16); ASPARTATE AMINO TRANSFERASE 12 U/L (10-37); BILIRUBIN,TOTAL 0.4 MG/DL (0.1-1.0); BLOOD UREA NITROGEN 20 MG/DL (7-18); BUN/CREATININE RATIO 15.5 (6.6-38.0); CALCIUM 8.3 MG/DL (8.5-10.1); CHLORIDE 108 MMOL/L (99-107); CREATININE 1.29 MG/DL (0.40-0.90); GLUCOSE 117 MG/DL (70-104); POTASSIUM 4.1 MMOL/L (3.5-5.1); SODIUM 144 MMOL/L (135-145); TOTAL CARBON DIOXIDE 26.5 MMOL/L (24-32); TOTAL PROTEIN 5.6 G/DL (6.4-8.2); eGFR 41 ML/MIN
[2021-07-13 07:00] VITALS: BP 109/59
--- NOTE | 2021-07-13 08:00 | NUR ---
AWAKE AND ORIENTED; HOWEVER, PATIENT TALKS ABOUT REGULATORY TECHNICIAN, AND PEOPLE IN GENERAL BEING AGAINST HER TRYING TO LIE TO HER. REASSURANCES AND EXPLANATIONS GIVEN REGARDING PLAN OF CARE. PATIENT CONTINUES WITH EXPRESSING PARANOID THOUGHTS WILL CONTINUE TO REASSURE HER. Addendum: 07/13/21 at 1748 by Tamara Campos RN Amended: Links added.
[2021-07-13] MEDS: HYDROcodone/acetaminophen 10/325mg tab PO PRN (08:56)
[2021-07-13 11:00] VITALS: BP 114/61
[2021-07-13] MEDS: docusate sod 100mg capsule PO SCH ×2 (11:07→21:41)
[2021-07-13] MEDS: pantoprazole 40 MG vial IV SCH (11:08)
[2021-07-13] MEDS: lactobacillus rhamnosus 10,000 MMU CELLS/CAPSULE PO SCH ×2 (11:08→21:42)
[2021-07-13] MEDS ORDERED: oxyCODONE/APAP 10/325mg tablet PO PRN (11:50)
[2021-07-13] MEDS: gabapentin 100mg capsule PO SCH ×2 (14:32→21:44)
[2021-07-13 15:00] VITALS: BP 133/69
[2021-07-13 18:00] VITALS: BP 118/52
--- NOTE | 2021-07-13 18:30 | NUR ---
Patient in room PCU 3014. I have received report from GINETTE RN and had the opportunity to ask questions and assume patient care.
[2021-07-13 22:00] VITALS: BP 105/52
[2021-07-14] MEDS: piperacillin/tazo 4.5gm/100ml 100 ML IV SCH ×4 (00:38→23:48)
[2021-07-14 02:00] VITALS: BP 114/52
[2021-07-14] MEDS: cephalexin 500mg capsule PO SCH ×3 (02:47→13:30)
[2021-07-14 06:00] VITALS: BP 109/63
--- NOTE | 2021-07-14 06:00 | NUR ---
Patient in room PCU 3014. I have received report from Giulia Platt RN and had the opportunity to ask questions and assume patient care.
[2021-07-14 06:28] LABS: BASOPHILS % (AUTO) 0.2 % (0-1); EOSINOPHILS # (AUTO) 0.2 X10'3 (0-0.9); EOSINOPHILS % (AUTO) 1.9 % (0-6); HEMATOCRIT 34.1 % (35.0-45.0); HEMOGLOBIN 11.2 g/dl (12.0-16.0); LYMPHOCYTES # (AUTO) 1.4 X10'3 (1.1-4.8); LYMPHOCYTES % (AUTO) 14.6 % (21-51); MEAN CORPUSCULAR HEMOGLOBIN 31.7 PG (27.0-31.0); MEAN CORPUSCULAR HGB CONC 32.7 g/dL (33.0-36.5); MEAN CORPUSCULAR VOLUME 96.9 FL (78-98); MEAN PLATELET VOLUME 8.5 FL (7.4-10.4); MONOCYTES # (AUTO) 0.5 X10'3 (0-0.9); MONOCYTES % (AUTO) 5.6 % (2-12); NEUTROPHILS # (AUTO) 7.5 X10'3 (1.8-7.7); NEUTROPHILS % (AUTO) 77.7 % (42-75); PLATELET COUNT 220 X10'3 (140-440); RED BLOOD COUNT 3.52 X10'6 (4.20-5.60); RED CELL DISTRIBUTION WIDTH 13.1 % (11.5-14.5); WHITE BLOOD COUNT 9.7 X10'3 (4.5-11.0)
--- NOTE | 2021-07-14 06:30 | NUR ---
Problems reprioritized. Patient report given, questions answered & plan of care reviewed with PRASANNA CHRSI.
[2021-07-14 06:42] LABS: ALANINE AMINOTRANSFERASE 26 U/L (12-78); ALBUMIN 2.3 G/DL (3.4-5.0); ALBUMIN/GLOBULIN RATIO 0.7 (1.1-1.5); ALKALINE PHOSPHATASE 80 IU/L (46-116); ANION GAP 8 (8-16); ASPARTATE AMINO TRANSFERASE 12 U/L (10-37); BILIRUBIN,TOTAL 0.4 MG/DL (0.1-1.0); BLOOD UREA NITROGEN 16 MG/DL (7-18); BUN/CREATININE RATIO 11.4 (6.6-38.0); CALCIUM 8.3 MG/DL (8.5-10.1); CHLORIDE 109 MMOL/L (99-107); GLUCOSE 102 MG/DL (70-104); POTASSIUM 3.9 MMOL/L (3.5-5.1); SODIUM 145 MMOL/L (135-145); TOTAL CARBON DIOXIDE 28.2 MMOL/L (24-32); TOTAL PROTEIN 5.4 G/DL (6.4-8.2); eGFR 37 ML/MIN
[2021-07-14] MEDS: pantoprazole 40 MG vial IV SCH (07:57)
[2021-07-14] MEDS: docusate sod 100mg capsule PO SCH ×2 (07:58→19:34)
[2021-07-14] MEDS: lactobacillus rhamnosus 10,000 MMU CELLS/CAPSULE PO SCH ×2 (07:58→19:34)
[2021-07-14] MEDS: gabapentin 100mg capsule PO SCH ×3 (07:58→20:49)
[2021-07-14] MEDS: normal saline 1000ml 1,000 ML IV SCH ×3 (08:00→19:36)
[2021-07-14 11:00] VITALS: BP 112/58
[2021-07-14] MEDS: nicotine 14mg patch - 24hr TD SCH (15:05)
[2021-07-14 15:22] VITALS: BP 107/56
[2021-07-14 18:00] VITALS: BP 124/80
--- NOTE | 2021-07-14 18:32 | NUR ---
Patient in room PCU 3014. I have received report from DOT Oliveros and had the opportunity to ask questions and assume patient care.
[2021-07-14] MEDS: enoxaparin 40mg/0.4ml syringe SUBCUT SCH (19:36)
[2021-07-14 22:00] VITALS: BP 99/53
[2021-07-15 04:00] VITALS: BP 113/63
[2021-07-15] MEDS: normal saline 1000ml 1,000 ML IV SCH (05:33)
[2021-07-15 06:00] VITALS: BP 106/53
--- NOTE | 2021-07-15 06:20 | NUR ---
Patient in room PCU 3014. I have received report from DOT Wiseman and had the opportunity to ask questions and assume patient care.
--- NOTE | 2021-07-15 06:22 | NUR ---
Problems reprioritized. Patient report given, questions answered & plan of care reviewed with DOT Wiseman.
--- NOTE | 2021-07-15 06:22 | NUR ---
Patient in room PCU 3014. I have received report from radha alston and had the opportunity to ask questions and assume patient care.
[2021-07-15 06:34] LABS: BASOPHILS % (AUTO) 0.1 % (0-1); EOSINOPHILS # (AUTO) 0.3 X10'3 (0-0.9); EOSINOPHILS % (AUTO) 3.1 % (0-6); HEMATOCRIT 32.6 % (35.0-45.0); HEMOGLOBIN 10.8 g/dl (12.0-16.0); LYMPHOCYTES # (AUTO) 1.4 X10'3 (1.1-4.8); LYMPHOCYTES % (AUTO) 16.5 % (21-51); MEAN CORPUSCULAR HEMOGLOBIN 31.3 PG (27.0-31.0); MEAN CORPUSCULAR HGB CONC 33.2 g/dL (33.0-36.5); MEAN CORPUSCULAR VOLUME 94.2 FL (78-98); MEAN PLATELET VOLUME 8.1 FL (7.4-10.4); MONOCYTES # (AUTO) 0.4 X10'3 (0-0.9); MONOCYTES % (AUTO) 4.3 % (2-12); NEUTROPHILS # (AUTO) 6.4 X10'3 (1.8-7.7); PLATELET COUNT 223 X10'3 (140-440); RED BLOOD COUNT 3.46 X10'6 (4.20-5.60); WHITE BLOOD COUNT 8.4 X10'3 (4.5-11.0)
[2021-07-15 07:10] LABS: ALANINE AMINOTRANSFERASE 21 U/L (12-78); ALBUMIN 2.2 G/DL (3.4-5.0); ALBUMIN/GLOBULIN RATIO 0.7 (1.1-1.5); ALKALINE PHOSPHATASE 83 IU/L (46-116); ANION GAP 10 (8-16); ASPARTATE AMINO TRANSFERASE 12 U/L (10-37); BILIRUBIN,TOTAL 0.4 MG/DL (0.1-1.0); BLOOD UREA NITROGEN 12 MG/DL (7-18); CHLORIDE 112 MMOL/L (99-107); GLUCOSE 97 MG/DL (70-104); POTASSIUM 3.7 MMOL/L (3.5-5.1); SODIUM 148 MMOL/L (135-145); TOTAL CARBON DIOXIDE 25.8 MMOL/L (24-32); TOTAL PROTEIN 5.2 G/DL (6.4-8.2); eGFR 45 ML/MIN
[2021-07-15] MEDS: nicotine 14mg patch - 24hr TD SCH (08:00)
[2021-07-15] MEDS: docusate sod 100mg capsule PO SCH ×2 (08:10→21:10)
[2021-07-15] MEDS: lactobacillus rhamnosus 10,000 MMU CELLS/CAPSULE PO SCH ×2 (08:11→21:10)
[2021-07-15] MEDS: gabapentin 100mg capsule PO SCH ×3 (08:11→21:10)
[2021-07-15] MEDS: pantoprazole 40 MG vial IV SCH (08:11)
[2021-07-15] MEDS: piperacillin/tazo 4.5gm/100ml 100 ML IV SCH ×2 (08:35→16:06)
[2021-07-15 11:00] VITALS: BP 116/65
[2021-07-15 15:00] VITALS: BP 126/71
[2021-07-15] MEDS ORDERED: methylnaltrexone br 12mg/0.6ml inj***SubQ only SQ ONE (15:35)
[2021-07-15 18:00] VITALS: BP 135/69
--- NOTE | 2021-07-15 18:39 | NUR ---
Problems reprioritized. Patient report given, questions answered & plan of care reviewed with Fidelina CHRIS.
[2021-07-15] MEDS: metoclopramide 5 mg/ml inj IV SCH (21:10)
[2021-07-15] MEDS: enoxaparin 40mg/0.4ml syringe SUBCUT SCH (21:11)
[2021-07-15 22:00] VITALS: BP 112/51
[2021-07-16] MEDS: normal saline 1000ml 1,000 ML IV SCH
[2021-07-16] MEDS: piperacillin/tazo 4.5gm/100ml 100 ML IV SCH
[2021-07-16] MEDS: metoclopramide 5 mg/ml inj IV SCH (02:00)
[2021-07-16 06:00] VITALS: BP 132/77
--- NOTE | 2021-07-16 06:07 | NUR ---
[place] Medication Administration: For this medication-pass time frame, all medication were reviewed, dispensed, administered and documented per hospital policy by DOT Alonso. [place] documentation: I have reviewed and agree with all interventions, assessments performed and documented by DOT Alonso.
--- NOTE | 2021-07-16 06:15 | NUR ---
Problems reprioritized. Patient report given, questions answered & plan of care reviewed with DOT Wiseman.
--- NOTE | 2021-07-16 06:23 | NUR ---
Patient in room PCU 3014. I have received report from Celeste Lopes and had the opportunity to ask questions and assume patient care.
[2021-07-16 06:54] LABS: BASOPHILS % (AUTO) 0.2 % (0-1); EOSINOPHILS # (AUTO) 0.4 X10'3 (0-0.9); EOSINOPHILS % (AUTO) 3.3 % (0-6); HEMATOCRIT 32.4 % (35.0-45.0); LYMPHOCYTES # (AUTO) 1.3 X10'3 (1.1-4.8); LYMPHOCYTES % (AUTO) 11.8 % (21-51); MEAN CORPUSCULAR HEMOGLOBIN 31.6 PG (27.0-31.0); MEAN CORPUSCULAR HGB CONC 33.9 g/dL (33.0-36.5); MEAN CORPUSCULAR VOLUME 93.4 FL (78-98); MEAN PLATELET VOLUME 8.3 FL (7.4-10.4); MONOCYTES # (AUTO) 0.4 X10'3 (0-0.9); MONOCYTES % (AUTO) 3.9 % (2-12); NEUTROPHILS # (AUTO) 9.1 X10'3 (1.8-7.7); NEUTROPHILS % (AUTO) 80.8 % (42-75); PLATELET COUNT 234 X10'3 (140-440); RED BLOOD COUNT 3.46 X10'6 (4.20-5.60); RED CELL DISTRIBUTION WIDTH 12.9 % (11.5-14.5); WHITE BLOOD COUNT 11.3 X10'3 (4.5-11.0)
[2021-07-16 07:05] LABS: ALANINE AMINOTRANSFERASE 20 U/L (12-78); ALBUMIN 2.2 G/DL (3.4-5.0); ALBUMIN/GLOBULIN RATIO 0.7 (1.1-1.5); ALKALINE PHOSPHATASE 87 IU/L (46-116); ANION GAP 10 (8-16); ASPARTATE AMINO TRANSFERASE 11 U/L (10-37); BILIRUBIN,TOTAL 0.3 MG/DL (0.1-1.0); BLOOD UREA NITROGEN 10 MG/DL (7-18); BUN/CREATININE RATIO 9.1 (6.6-38.0); CALCIUM 8.2 MG/DL (8.5-10.1); CHLORIDE 111 MMOL/L (99-107); GLUCOSE 98 MG/DL (70-104); POTASSIUM 3.8 MMOL/L (3.5-5.1); SODIUM 146 MMOL/L (135-145); TOTAL CARBON DIOXIDE 24.8 MMOL/L (24-32); TOTAL PROTEIN 5.2 G/DL (6.4-8.2); eGFR 49 ML/MIN
[2021-07-16] MEDS: nicotine 14mg patch - 24hr TD SCH (08:00)
[2021-07-16] MEDS: lactobacillus rhamnosus 10,000 MMU CELLS/CAPSULE PO SCH (08:13)
[2021-07-16] MEDS: docusate sod 100mg capsule PO SCH (08:13)
[2021-07-16] MEDS: gabapentin 100mg capsule PO SCH ×2 (08:14→13:34)
[2021-07-16 11:00] VITALS: BP 146/86
--- NOTE | 2021-07-16 12:09 | NUR ---
Initial: Pt admitted w/ abdominal pain and found to have ventral hernia, underwent repair 07/11 per EMR. Pt on Clear liquid diet since 07/12 eating 50-100% of meals, advanced to Full liquids today and was able to have 50% of breakfast per documentation, needs not being met. Recommend continue to advance diet to Regular diet as tolerated. LBM 07/15 receiving routine colace. Will continue to monitor. Recs: 1. Advance diet to Regular as medically indicated 2. Bowel care per rx 3. Weekly wts Addendum: 07/16/21 at [address] Amended: Links added.
[2021-07-16] MEDS ORDERED: ONDA4TAB12 PO (14:55)
[2021-07-16] MEDS ORDERED: PANT40TA54 PO (14:55)
[2021-07-16 15:00] VITALS: BP 131/71
--- NOTE | 2021-07-16 16:35 | NUR ---
PT WAS DISCHARGED, IV WAS ALREADY TAKEN OUT BY [facility]. WENT OVER ALL DISCHARGE INFO, PT WAS WHEELED TO LOBBY IN A WHEELCHAIR AND PICKED UP BY A CAB TO BE TAKEN TO [facility].
[2021-07-17] MEDS ORDERED: pantoprazole 40mg Tablet.DR PO SCH (07:30)
== END 2021-07-16 16:20 | disposition home or self-care (01) | DRG 353 ==
LOC: ER 18:20 → ED HOLD 20:04 → PCU 3S 22:15
PROVIDERS: ADMIT Family Medicine; ATTEND Internal Medicine
PROC: 0D9670Z Drainage of Stomach with Drainage Device, Via Natural or Artificial Opening (ICD-10-PCS; 2021-07-11)
PROC: 0WQF0ZZ Repair Abdominal Wall, Open Approach (ICD-10-PCS; principal; 2021-07-11 20:20)
DX: K43.6 Other and unspecified ventral hernia with obstruction, without gangrene (principal); N17.0 Acute kidney failure with tubular necrosis; E87.2 Acidosis; E87.0 Hyperosmolality and hypernatremia; I50.32 Chronic diastolic (congestive) heart failure; K56.7 Ileus, unspecified; L03.116 Cellulitis of left lower limb; E86.0 Dehydration; Z60.2 Problems related to living alone; F17.210 Nicotine dependence, cigarettes, uncomplicated; Z20.822 Contact with and (suspected) exposure to COVID-19; F20.9 Schizophrenia, unspecified; I11.0 Hypertensive heart disease with heart failure; J44.9 Chronic obstructive pulmonary disease, unspecified; Z59.0 Homelessness; Z90.49 Acquired absence of other specified parts of digestive tract; Z90.710 Acquired absence of both cervix and uterus; Z87.440 Personal history of urinary (tract) infections; Z71.6 Tobacco abuse counseling
CPT/HCPCS: 36415; 71045; 74176; 80053; 83036; 83605; 83690; 83735; 83880; 84100; 84145; 85007; 85025; 85610; 85730; 86885; 86900; 86901; 87040; 87081; 87635; 93005; 93971; 97116; 97162; 97530; 99291; A4618; A7000; C1758; C9113; C9290; C9399; C9803; G0378; J1100; J1650; J2001; J2250; J2270; J2405; J2543; J2704; J2765; J3010; J3490; J7030; J7120

== ENCOUNTER 2021-07-18 08:20 | Emergency (ER) | payer MEDICARE ==
[~2021-07-18] VITALS: Ht 160 cm; Wt 63.6 kg
[~2021-07-18 08:20] MED LIST changes: -KEF125L PO; +ONDA4TAB12 PO; +PANT40TA54 PO
[2021-07-18 08:41] VITALS: BP 132/46
[2021-07-18] MEDS ORDERED: HYDROcodone/acetaminophen 5mg/325mg tablet PO ONE (08:55)
--- NOTE | 2021-07-18 09:00 | NUR ---
Spoke with patient in regards to medications and if needs money to pay for medications then she needs to go see her Payee, unable to redirect patient back to medical needs and began talking about how her payee does not help her, refer this case to renal social worker and if patient requires any assistance with medical needs to please contact me
[2021-07-18] MEDS ORDERED: HYDR-3965 PO (09:25)
== END 2021-07-18 11:55 | disposition home or self-care (01) ==
LOC: ER 08:21
DX: Z76.0 Encounter for issue of repeat prescription (principal); R52 Pain, unspecified; I10 Essential (primary) hypertension; Z87.440 Personal history of urinary (tract) infections; Z90.49 Acquired absence of other specified parts of digestive tract; Z90.710 Acquired absence of both cervix and uterus; Z90.89 Acquired absence of other organs; Z59.0 Homelessness; Z60.2 Problems related to living alone; Z79.899 Other long term (current) drug therapy
CPT/HCPCS: 99283

== ENCOUNTER 2021-10-30 17:27 | Emergency (ER) | payer MEDICARE ==
[~2021-10-30] VITALS: Ht 160 cm; Wt 68.2 kg
[2021-10-30 18:37] LABS: BASOPHILS % (AUTO) 0.4 % (0-1); EOSINOPHILS # (AUTO) 0.1 X10'3 (0-0.9); EOSINOPHILS % (AUTO) 0.9 % (0-6); HEMATOCRIT 37.8 % (35.0-45.0); HEMOGLOBIN 12.8 g/dl (12.0-16.0); LYMPHOCYTES # (AUTO) 1.5 X10'3 (1.1-4.8); MEAN CORPUSCULAR HEMOGLOBIN 32.8 PG (27.0-31.0); MEAN CORPUSCULAR VOLUME 96.5 FL (78-98); MEAN PLATELET VOLUME 8.6 FL (7.4-10.4); MONOCYTES # (AUTO) 0.7 X10'3 (0-0.9); MONOCYTES % (AUTO) 6.9 % (2-12); NEUTROPHILS # (AUTO) 8.1 X10'3 (1.8-7.7); NEUTROPHILS % (AUTO) 77.8 % (42-75); PLATELET COUNT 216 X10'3 (140-440); RED BLOOD COUNT 3.92 X10'6 (4.20-5.60); RED CELL DISTRIBUTION WIDTH 13.8 % (11.5-14.5); WHITE BLOOD COUNT 10.4 X10'3 (4.5-11.0)
[2021-10-30 18:40] LABS: CLARITY,URINE CLEAR (Clear); COLOR,URINE YELLOW (Yellow); GLUCOSE, URINE NEGATIVE (Neg); KETONES,URINE NEGATIVE (Neg); LEUKOCYTE ESTERASE ,URINE NEGATIVE (Neg); NITRITES, URINE NEGATIVE (Neg); OCCULT BLOOD,URINE NEGATIVE (Neg); PROTEIN,URINE NEGATIVE (Neg); UROBILINOGEN,URINE 0.2 E.U/dL (0.2-1.0)
[2021-10-30 18:51] LABS: UA COLLECTION TYPE CLN CATCH MIDSTREAM
[2021-10-30 18:55] LABS: ALANINE AMINOTRANSFERASE 25 U/L (12-78); ALBUMIN 3.7 G/DL (3.4-5.0); ALBUMIN/GLOBULIN RATIO 1.2 (1.1-1.5); ALKALINE PHOSPHATASE 144 IU/L (46-116); ANION GAP 12 (8-16); ASPARTATE AMINO TRANSFERASE 18 U/L (10-37); BILIRUBIN,TOTAL 0.3 MG/DL (0.1-1.0); BLOOD UREA NITROGEN 45 MG/DL (7-18); BUN/CREATININE RATIO 30.6 (6.6-38.0); CALCIUM 9.3 MG/DL (8.5-10.1); CHLORIDE 106 MMOL/L (99-107); CREATININE 1.47 MG/DL (0.40-0.90); GLUCOSE 94 MG/DL (70-104); POTASSIUM 4.3 MMOL/L (3.5-5.1); SODIUM 142 MMOL/L (135-145); TOTAL CARBON DIOXIDE 23.8 MMOL/L (24-32); TOTAL PROTEIN 6.9 G/DL (6.4-8.2); eGFR 35 ML/MIN
[2021-10-30 21:48] VITALS: BP 109/72
== END 2021-10-30 21:55 | disposition home or self-care (01) ==
LOC: ER 17:28
DX: Z02.89 Encounter for other administrative examinations (principal); R53.1 Weakness; I10 Essential (primary) hypertension; Z87.440 Personal history of urinary (tract) infections; Z90.49 Acquired absence of other specified parts of digestive tract; Z90.710 Acquired absence of both cervix and uterus; Z98.890 Other specified postprocedural states; Z59.00 Homelessness unspecified; Z60.2 Problems related to living alone; Z79.899 Other long term (current) drug therapy
CPT/HCPCS: 36415; 80053; 81003; 85025; 99284

== ENCOUNTER 2023-05-18 08:41 | Inpatient (IN) | payer BC, MEDICARE ==
[~2023-05-18] VITALS: Ht 160 cm; Wt 113.6 kg
[2023-05-18] VITALS (22 sets, daily range): BP systolic 121–187; BP diastolic 54–100; PULSE 77–88; RESP 12–24; TEMP 98.7; O2SAT 87–98
--- NOTE | 2023-05-18 09:50 | NUR ---
0900 I have reviewed and agree with all interventions, assessments performed and documented by DANDRE Mcdaniels.
[2023-05-18 10:08] LABS: BASOPHILS % (AUTO) 0.1 % (0-1); EOSINOPHILS # (AUTO) 0.1 X10'3 (0-0.9); EOSINOPHILS % (AUTO) 0.6 % (0-6); HEMATOCRIT 42.5 % (35.0-45.0); HEMOGLOBIN 14.1 g/dl (12.0-16.0); LYMPHOCYTES # (AUTO) 1.2 X10'3 (1.1-4.8); LYMPHOCYTES % (AUTO) 8.2 % (21-51); MEAN CORPUSCULAR HEMOGLOBIN 31.5 PG (27.0-31.0); MEAN CORPUSCULAR HGB CONC 33.2 g/dL (33.0-36.5); MEAN CORPUSCULAR VOLUME 94.9 FL (78-98); MEAN PLATELET VOLUME 8.6 FL (7.4-10.4); MONOCYTES # (AUTO) 0.4 X10'3 (0-0.9); MONOCYTES % (AUTO) 2.9 % (2-12); NEUTROPHILS # (AUTO) 12.9 X10'3 (1.8-7.7); NEUTROPHILS % (AUTO) 88.2 % (42-75); PLATELET COUNT 202 X10'3 (140-440); RED BLOOD COUNT 4.48 X10'6 (4.20-5.60); RED CELL DISTRIBUTION WIDTH 13.7 % (11.5-14.5); WHITE BLOOD COUNT 14.6 X10'3 (4.5-11.0)
[2023-05-18 10:21] LABS: ALANINE AMINOTRANSFERASE 37 U/L (12-78); ALBUMIN 3.5 G/DL (3.4-5.0); ALBUMIN/GLOBULIN RATIO 1.2 (1.1-1.5); ALKALINE PHOSPHATASE 111 IU/L (46-116); ANION GAP 6 (8-16); ASPARTATE AMINO TRANSFERASE 20 U/L (10-37); BILIRUBIN,TOTAL 0.7 MG/DL (0.1-1.0); BLOOD UREA NITROGEN 27 MG/DL (7-18); BUN/CREATININE RATIO 17.5 (10.0-20.0); CALCIUM 9.3 MG/DL (8.5-10.1); CHLORIDE 104 MMOL/L (99-107); CREATININE 1.54 MG/DL (0.40-0.90); GLUCOSE 163 MG/DL (70-104); LIPASE 77 U/L (73-393); POTASSIUM 4.4 MMOL/L (3.5-5.1); SODIUM 138 MMOL/L (135-145); TOTAL PROTEIN 6.5 G/DL (6.4-8.2); eGFR 33 ML/MIN
[2023-05-18] MEDS ORDERED: ondansetron 4mg rapidly disintigrating tab PO STA (10:26)
[2023-05-18] MEDS ORDERED: dicyclomine 10 MG capsule PO ONE (10:30)
[2023-05-18 12:13] LABS: CLARITY,URINE CLOUDY (Clear); COLOR,URINE YELLOW (Yellow); GLUCOSE, URINE NEGATIVE (Neg); KETONES,URINE NEGATIVE (Neg); LEUKOCYTE ESTERASE ,URINE TRACE (Neg); NITRITES, URINE NEGATIVE (Neg); OCCULT BLOOD,URINE NEGATIVE (Neg); PROTEIN,URINE NEGATIVE (Neg); UROBILINOGEN,URINE 0.2 E.U/dL (0.2-1.0)
[2023-05-18 12:40] LABS: UA COLLECTION TYPE CLN CATCH MIDSTREAM
[2023-05-18 12:42] LABS: BACTERIA,URINE 4+ /HPF (Neg); MUCUS STRANDS NONE SEEN /LPF (Neg); RBC,URINE NONE SEEN /HPF (0-2); SQUAMOUS EPITHELIAL CELL,UR MODERATE /LPF (FEW); WBC CLUMPS,URINE FEW /HPF (NEGATIVE); WBC,URINE 20-30 /HPF (0-4)
[2023-05-18] MEDS ORDERED: normal saline 1000ml 1,000 ML IV SCH (13:10)
[2023-05-18] MEDS ORDERED: CefTRIAXone/D5W-Rocephin 1gm 50 ML IV ONE (13:10)
[2023-05-18] MEDS ORDERED: potassium Cl 20 mEq SR tablet PO PRN ×2 (13:35)
[2023-05-18] MEDS ORDERED: acetaminophen 325mg tablet PO PRN (13:35)
[2023-05-18] MEDS ORDERED: mag hydrox/Alum hydrox/simeth 30ml oral suspension PO PRN (13:35)
[2023-05-18] MEDS ORDERED: magnesium 4gm in 100ml NS 100 ML IV PRN (13:35)
[2023-05-18] MEDS ORDERED: ondansetron/PF 4mg/2ml inj IV PRN ×2 (13:35→15:15)
[2023-05-18] MEDS ORDERED: magnesium hydroxide 30ml (MOM) UD suspension PO PRN (13:35)
[2023-05-18] MEDS ORDERED: potassium Cl 40MEQ/1/2NS 520ml 520 ML IV PRN (13:35)
[2023-05-18] MEDS: normal saline 1000ml 1,000 ML IV SCH ×2 (13:48→22:49)
[2023-05-18] MEDS ORDERED: LidoCAINE 2% Topical Jelly 11mL syringe MM ONE (14:25)
[2023-05-18] MEDS ORDERED: LIDOcaine 2% 10ml TOPICAL JELLY (Urojet) MM ONE (14:25)
[2023-05-18] MEDS ORDERED: morphine 4 MG/ML inj SYRINge IV ONE (14:50)
[2023-05-18] MEDS ORDERED: NO HOME MEDS (14:51)
[2023-05-18] MEDS ORDERED: ringers solution, lacted 1,000 ML IV SCH (15:15)
[2023-05-18] MEDS ORDERED: morphine 2 MG/ML inj. syringe IV PRN ×2 (15:15→21:05)
[2023-05-18] MEDS ORDERED: fentaNYL/PF 50MCG/1 ML 2ML syringe IV PRN ×2 (15:15)
[2023-05-18] MEDS ORDERED: hydrALAZINE 20mg/ml inj. IV PRN ×2 (15:15→21:10)
[2023-05-18] MEDS ORDERED: morphine 4 MG/ML inj SYRINge IV PRN (15:15)
[2023-05-18 15:35] LABS: APTT 26 SECONDS (22-32)
[2023-05-18] MEDS ORDERED: piperacillin/tazo 3.375gm/50ml 50 ML IV SCH (16:00)
[2023-05-18] MEDS ORDERED: fentaNYL/PF 50MCG/1 ML 2ML syringe ONE (17:13)
[2023-05-18] MEDS ORDERED: rocuronium 10mg/ml inj IV ONE ×2 (17:15→19:51)
[2023-05-18] MEDS ORDERED: propofol inj 20 ML IV ONE (17:15)
[2023-05-18] MEDS ORDERED: ondansetron/PF 4mg/2ml inj ONE (17:15)
[2023-05-18] MEDS ORDERED: LIDOcaine 2% (20mg/ml) 5ml vial ONE (17:15)
[2023-05-18] MEDS ORDERED: dexamethasone sod phosphate 4mg/ml inj. ONE (17:16)
[2023-05-18] MEDS ORDERED: sevoflurane 250ml liquid IH ONE (17:51)
[2023-05-18] MEDS ORDERED: ceFOXitin 1000 MG inj ONE ×2 (18:18)
[2023-05-18] MEDS ORDERED: labetalol 20mg/4ml (5mg/ml) syringe IV ONE (18:29)
[2023-05-18] MEDS ORDERED: BUPIVACAINE liposomal/PF 13.3 MG/ML vial IM ONE (19:22)
[2023-05-18] MEDS ORDERED: BUPIVAcaine/PF 2.5 mg/ml (0.25%) 30ml vial ONE (19:23)
[2023-05-18] MEDS ORDERED: HYDROmorphone inj. 0.5 MG/0.5 ML DISP.SYRIN SQ ONE (19:40)
[2023-05-18] MEDS: docusate sod 100mg capsule PO SCH (20:00)
[2023-05-18] MEDS ORDERED: enoxaparin 40mg/0.4ml syringe SQ SCH (20:00)
[2023-05-18] MEDS: K and/or MAG REPLACEMENT MC SCH (20:00)
[2023-05-18] MEDS ORDERED: neostigmine methylsulfate 1 MG/ML 10ml vial ONE (20:03)
[2023-05-18] MEDS ORDERED: glycopyrrolate 0.2mg/ml inj ONE (20:03)
--- NOTE | 2023-05-18 20:13 | NUR ---
Received from OR via HOSPITAL BED , accompanied by Anesthesiologist and report given by KEYSHAWN Anesthesiologist. PATIENT WAKING UP, NO S/S OF PAIN, SCD ON , PIV 22G LEFT WRIST, ISLAND DRESSING C/D/I TO ABDOMEN WITH LEFT AND RIGHT SHANEL DRAINING SEROSANGUINEOUS. EVANS CATHETER DRAINING CLEAR YELLOW URINE. RIGHT NG TUBE CONNECTED TO LOWER CONTINUOUS WALL SUCTION DRAINING GREEN DISCHARGE. Addendum: 05/18/23 at 2044 by Santana Hill RN Amended: Links added. Addendum: 05/18/23 at 2103 by Santana Hill RN RIGHT NG TUBE CONNECTED TO LOWER INTERMITTENT WALL SUCTION.
[2023-05-18] MEDS: labetalol 20mg/4ml (5mg/ml) syringe IV PRN ×3 (20:23→20:45)
[2023-05-18] MEDS ORDERED: diatr meglu/diatrizoate 30ml oral sol.-(3 dose) bottle PO SCH (21:00)
[2023-05-18] MEDS ORDERED: acetaminophen 1,000mg/100ml IV 100 ML IV ONE (21:05)
--- NOTE | 2023-05-18 21:33 | NUR ---
PATIENT HAS MET ALL CRITERIA FOR TRANSFER TO ORTHO FLOOR. VSS. DRESSINGS INTACT. BED LOW, CALL LIGHT PRESENT AND 2 RAILS UP. RN PRESENT TO ACCEPT CARE OF PATIENT AND REPORT HAS BEEN CALLED. ALL QUESTIONS ANSWERED TO ACCEPTING RN. Addendum: 05/18/23 at 2144 by Santana Hill RN Amended: Links added.
--- NOTE | 2023-05-18 21:40 | NUR ---
RECEIVED PT FROM OR VIA HOSPITAL BED FOLLOWING VERBAL REPORT FROM ADAMA. ASSUMED CARE
[2023-05-18] MEDS: morphine 2 MG/ML inj. syringe IV PRN (21:59)
[2023-05-18] MEDS: piperacillin/tazo 3.375gm/50ml 50 ML IV SCH (22:49)
[2023-05-19] VITALS (8 sets, daily range): BP systolic 100–166; BP diastolic 50–78; PULSE 92–114; RESP 16–18; TEMP 97.6–98.5; O2SAT 90–94
[2023-05-19] MEDS: morphine 2 MG/ML inj. syringe IV PRN ×2 (02:18→09:22)
[2023-05-19] MEDS: piperacillin/tazo 3.375gm/50ml 50 ML IV SCH ×3 (05:32→22:18)
[2023-05-19 06:45] LABS: BASOPHILS % (AUTO) 0.1 % (0-1); EOSINOPHILS % (AUTO) 0 % (0-6); HEMATOCRIT 42.9 % (35.0-45.0); HEMOGLOBIN 14.1 g/dl (12.0-16.0); LYMPHOCYTES # (AUTO) 0.5 X10'3 (1.1-4.8); MEAN CORPUSCULAR HEMOGLOBIN 31.6 PG (27.0-31.0); MEAN CORPUSCULAR HGB CONC 32.9 g/dL (33.0-36.5); MEAN CORPUSCULAR VOLUME 96.1 FL (78-98); MEAN PLATELET VOLUME 8.6 FL (7.4-10.4); MONOCYTES # (AUTO) 0.6 X10'3 (0-0.9); MONOCYTES % (AUTO) 2.7 % (2-12); NEUTROPHILS # (AUTO) 22.3 X10'3 (1.8-7.7); NEUTROPHILS % (AUTO) 95.2 % (42-75); PLATELET COUNT 195 X10'3 (140-440); RED BLOOD COUNT 4.47 X10'6 (4.20-5.60); RED CELL DISTRIBUTION WIDTH 14.1 % (11.5-14.5); WHITE BLOOD COUNT 23.4 X10'3 (4.5-11.0)
[2023-05-19 07:10] LABS: ALANINE AMINOTRANSFERASE 43 U/L (12-78); ALBUMIN/GLOBULIN RATIO 0.9 (1.1-1.5); ALKALINE PHOSPHATASE 102 IU/L (46-116); ANION GAP 12 (8-16); ASPARTATE AMINO TRANSFERASE 29 U/L (10-37); BILIRUBIN,TOTAL 0.6 MG/DL (0.1-1.0); BLOOD UREA NITROGEN 24 MG/DL (7-18); BUN/CREATININE RATIO 12.9 (10.0-20.0); CALCIUM 8.5 MG/DL (8.5-10.1); CHLORIDE 104 MMOL/L (99-107); CREATININE 1.86 MG/DL (0.40-0.90); GLUCOSE 249 MG/DL (70-104); MAGNESIUM 1.8 MG/DL (1.5-2.4); SODIUM 140 MMOL/L (135-145); TOTAL CARBON DIOXIDE 24.1 MMOL/L (24-32); TOTAL PROTEIN 6.3 G/DL (6.4-8.2); eGFR 27 ML/MIN
[2023-05-19] MEDS: K and/or MAG REPLACEMENT MC SCH ×2 (08:00→20:00)
[2023-05-19] MEDS: docusate sod 100mg capsule PO SCH ×2 (08:00→20:00)
[2023-05-19] MEDS: CefTRIAXone/D5W-Rocephin 1gm 50 ML IV SCH (08:00)
[2023-05-19] MEDS ORDERED: ziprasidone IM 20mg inj **IM only IM PRN (10:20)
[2023-05-19] MEDS: morphine 4 MG/ML inj SYRINge IV PRN ×3 (11:51→22:10)
[2023-05-19] MEDS: dextrose 5%-lactated ringers 1,000 ML IV SCH ×2 (15:47→21:20)
--- NOTE | 2023-05-19 18:35 | NUR ---
Gave report to Giulia Platt RN
--- NOTE | 2023-05-19 19:20 | NUR ---
Patient in room ORTHO 4009. I have received report from DOT Chinchilla and had the opportunity to ask questions and assume patient care.
[2023-05-19] MEDS: enoxaparin 30mg/0.3ml syringe SQ SCH (20:00)
[2023-05-19] MEDS: risperiDONE 0.5mg tablet PO SCH (21:00)
--- NOTE | 2023-05-19 22:02 | NUR ---
Patient refused PM medications, stating "I cannot take anything by mouth!" I consulted with the pharmacy, and with my charge nurse. Education was provided to the patient, and she insisted that she cannot take it. Medication was not administered. Will attempt at educating again later.
--- NOTE | 2023-05-19 22:43 | NUR ---
PATIENT REFUSED STAFF TO CHECK HER DRAINS. EDUCATION WAS PROVIDED TO PATIENT, AND SHE IS STILL REFUSING. WILL ATTEMPT AGAIN IN THE FUTURE. CHARGE NURSE NOTIFIED.
[2023-05-19] MEDS: normal saline 1000ml 1,000 ML IV SCH (22:55)
--- NOTE | 2023-05-20 02:03 | NUR ---
Went into patients room, and was assisting roommate. I noticed that B bed was awake, so I asked her if she was in pain. She squinted at me, and mumbled something. I asked for clarification, patient began to yell saying, "OH NOW YOU HAVE PAIN MEDICINE?!" I asked patient to not speak so loudly as she has roommates. Patient began to make garbled sounds, alongside giggling. Her thought process appeared to not be intact. I finished helping out her roommate, and went over to talk some more with patient, and she was asleep. Breathing was even and unlabored. Will continue to monitor patient behavior.
[2023-05-20] MEDS: morphine 4 MG/ML inj SYRINge IV PRN ×4 (02:54→21:03)
[2023-05-20] MEDS: piperacillin/tazo 3.375gm/50ml 50 ML IV SCH ×3 (05:32→22:14)
[2023-05-20 06:00] VITALS: BP 131/61; PULSE 104; RESP 18; TEMP 98.9; O2SAT 90
--- NOTE | 2023-05-20 06:38 | NUR ---
Problems reprioritized. Patient report given, questions answered & plan of care reviewed with DANDRE Vaughn.
[2023-05-20 06:41] LABS: BASOPHILS % (AUTO) 0.2 % (0-1); EOSINOPHILS # (AUTO) 0.1 X10'3 (0-0.9); EOSINOPHILS % (AUTO) 0.8 % (0-6); HEMATOCRIT 37.1 % (35.0-45.0); HEMOGLOBIN 12.1 g/dl (12.0-16.0); LYMPHOCYTES # (AUTO) 1.3 X10'3 (1.1-4.8); LYMPHOCYTES % (AUTO) 6.9 % (21-51); MEAN CORPUSCULAR HEMOGLOBIN 31.6 PG (27.0-31.0); MEAN CORPUSCULAR HGB CONC 32.5 g/dL (33.0-36.5); MEAN CORPUSCULAR VOLUME 97.3 FL (78-98); MONOCYTES % (AUTO) 5.6 % (2-12); NEUTROPHILS # (AUTO) 15.8 X10'3 (1.8-7.7); NEUTROPHILS % (AUTO) 86.5 % (42-75); PLATELET COUNT 204 X10'3 (140-440); RED BLOOD COUNT 3.82 X10'6 (4.20-5.60); RED CELL DISTRIBUTION WIDTH 14.4 % (11.5-14.5); WHITE BLOOD COUNT 18.3 X10'3 (4.5-11.0)
--- NOTE | 2023-05-20 06:44 | NUR ---
I have reviewed and agree with all interventions, assessments performed and documented by DANDRE WASHINGTON.
[2023-05-20 06:58] LABS: ALANINE AMINOTRANSFERASE 29 U/L (12-78); ALBUMIN 2.5 G/DL (3.4-5.0); ALBUMIN/GLOBULIN RATIO 0.8 (1.1-1.5); ALKALINE PHOSPHATASE 84 IU/L (46-116); ANION GAP 8 (8-16); ASPARTATE AMINO TRANSFERASE 27 U/L (10-37); BILIRUBIN,TOTAL 0.6 MG/DL (0.1-1.0); BLOOD UREA NITROGEN 23 MG/DL (7-18); BUN/CREATININE RATIO 14.6 (10.0-20.0); CALCIUM 8.3 MG/DL (8.5-10.1); CHLORIDE 107 MMOL/L (99-107); CREATININE 1.57 MG/DL (0.40-0.90); GLUCOSE 168 MG/DL (70-104); MAGNESIUM 1.9 MG/DL (1.5-2.4); POTASSIUM 4.2 MMOL/L (3.5-5.1); SODIUM 142 MMOL/L (135-145); TOTAL CARBON DIOXIDE 27.4 MMOL/L (24-32); TOTAL PROTEIN 5.6 G/DL (6.4-8.2); eGFR 33 ML/MIN
--- NOTE | 2023-05-20 07:09 | NUR ---
Problems reprioritized. Patient report given, questions answered & plan of care reviewed with DOT Frederick.
[2023-05-20] MEDS: dextrose 5%-lactated ringers 1,000 ML IV SCH ×2 (07:20→17:51)
[2023-05-20 08:00] VITALS: RESP 17; O2SAT 93
[2023-05-20] MEDS: K and/or MAG REPLACEMENT MC SCH ×2 (08:00→19:30)
[2023-05-20] MEDS: CefTRIAXone/D5W-Rocephin 1gm 50 ML IV SCH (09:28)
[2023-05-20] MEDS: docusate sod 100mg capsule PO SCH ×2 (09:28→21:02)
--- NOTE | 2023-05-20 09:46 | NUR ---
PT paged to work with pt. She has received pain management. They called and plan to work with her in the next 10 minutes.
[2023-05-20 10:00] VITALS: BP 116/48; PULSE 100; RESP 18; TEMP 99.4; O2SAT 94
--- NOTE | 2023-05-20 16:31 | NUR ---
F/C HEATH'Danial. PT TOLERATED WELL.
[2023-05-20 18:00] VITALS: BP 114/63; PULSE 90; RESP 20; TEMP 98; O2SAT 93
--- NOTE | 2023-05-20 18:00 | NUR ---
Patient in room ORTHO 4009. I have received report from Yoly CHRIS and had the opportunity to ask questions and assume patient care.
--- NOTE | 2023-05-20 18:31 | NUR ---
Gave report to Brina CHRIS.
[2023-05-20 20:00] VITALS: RESP 18; O2SAT 93
[2023-05-20] MEDS: risperiDONE 0.5mg tablet PO SCH (21:02)
[2023-05-20] MEDS: enoxaparin 30mg/0.3ml syringe SQ SCH (21:03)
[2023-05-20 22:00] VITALS: BP 143/67; PULSE 88; RESP 20; TEMP 98.2; O2SAT 92
[2023-05-21] VITALS (7 sets, daily range): BP systolic 110–151; BP diastolic 57–84; PULSE 84–102; RESP 17–20; TEMP 97.1–98.3; O2SAT 91–98
[2023-05-21] MEDS: morphine 4 MG/ML inj SYRINge IV PRN ×4 (01:43→20:13)
[2023-05-21] MEDS: dextrose 5%-lactated ringers 1,000 ML IV SCH ×3 (03:20→20:45)
[2023-05-21] MEDS: piperacillin/tazo 3.375gm/50ml 50 ML IV SCH (05:35)
--- NOTE | 2023-05-21 06:34 | NUR ---
Patient in room ORTHO 4009. I have received report from Brina CHRIS and had the opportunity to ask questions and assume patient care.
[2023-05-21 06:41] LABS: BASOPHILS % (AUTO) 0.1 % (0-1); EOSINOPHILS # (AUTO) 0.4 X10'3 (0-0.9); EOSINOPHILS % (AUTO) 2.8 % (0-6); HEMATOCRIT 37.6 % (35.0-45.0); HEMOGLOBIN 12.5 g/dl (12.0-16.0); LYMPHOCYTES # (AUTO) 1.1 X10'3 (1.1-4.8); LYMPHOCYTES % (AUTO) 8.3 % (21-51); MEAN CORPUSCULAR HEMOGLOBIN 32.1 PG (27.0-31.0); MEAN CORPUSCULAR HGB CONC 33.3 g/dL (33.0-36.5); MEAN CORPUSCULAR VOLUME 96.2 FL (78-98); MEAN PLATELET VOLUME 8.5 FL (7.4-10.4); MONOCYTES # (AUTO) 0.7 X10'3 (0-0.9); MONOCYTES % (AUTO) 4.9 % (2-12); NEUTROPHILS # (AUTO) 11.2 X10'3 (1.8-7.7); NEUTROPHILS % (AUTO) 83.9 % (42-75); PLATELET COUNT 185 X10'3 (140-440); RED CELL DISTRIBUTION WIDTH 14.1 % (11.5-14.5); WHITE BLOOD COUNT 13.4 X10'3 (4.5-11.0)
[2023-05-21 06:50] LABS: ALANINE AMINOTRANSFERASE 27 U/L (12-78); ALBUMIN 2.4 G/DL (3.4-5.0); ALBUMIN/GLOBULIN RATIO 0.7 (1.1-1.5); ALKALINE PHOSPHATASE 84 IU/L (46-116); ANION GAP 5 (8-16); ASPARTATE AMINO TRANSFERASE 29 U/L (10-37); BILIRUBIN,TOTAL 0.6 MG/DL (0.1-1.0); BLOOD UREA NITROGEN 18 MG/DL (7-18); BUN/CREATININE RATIO 12.3 (10.0-20.0); CALCIUM 8.6 MG/DL (8.5-10.1); CHLORIDE 108 MMOL/L (99-107); CREATININE 1.46 MG/DL (0.40-0.90); GLUCOSE 156 MG/DL (70-104); MAGNESIUM 1.8 MG/DL (1.5-2.4); POTASSIUM 4.1 MMOL/L (3.5-5.1); SODIUM 142 MMOL/L (135-145); TOTAL CARBON DIOXIDE 29.4 MMOL/L (24-32); TOTAL PROTEIN 5.8 G/DL (6.4-8.2); eGFR 36 ML/MIN
--- NOTE | 2023-05-21 07:42 | NUR ---
WOC note: Wound care referral sent for lymph edema BLE wraps. Spoke to Roman, charge nurse and relayed that in-pt wound nurse does not do unna wraps in acute care. She should go to our out-patient clinic and have home health care. Roman reported that he would relay the message. No need for WOC to follow at this time.
[2023-05-21] MEDS: K and/or MAG REPLACEMENT MC SCH ×2 (08:00→19:53)
[2023-05-21] MEDS: docusate sod 100mg capsule PO SCH ×2 (08:10→20:14)
[2023-05-21] MEDS: CefTRIAXone/D5W-Rocephin 1gm 50 ML IV SCH (08:10)
[2023-05-21] MEDS: metoclopramide 5 mg/ml inj IV SCH ×3 (09:07→20:13)
--- NOTE | 2023-05-21 18:30 | NUR ---
patient ambulated with PT x2 300ft x2. medicated for pain x2 with good effect. Francisco drains serosang 20 mls right 10 mls left.Appears comfortable at this time. Report given to Ellie CHRIS
--- NOTE | 2023-05-21 19:30 | NUR ---
Patient in room ORTHO 4009. I have received report from Lisa CHRIS and had the opportunity to ask questions and assume patient care.
--- NOTE | 2023-05-21 20:00 | NUR ---
Pt was medicated, turned, and had a complete bedchange. Abdominal dressing was changed
[2023-05-21] MEDS: enoxaparin 30mg/0.3ml syringe SQ SCH (20:13)
[2023-05-21] MEDS: risperiDONE 0.5mg tablet PO SCH (20:14)
[2023-05-22] MEDS: metoclopramide 5 mg/ml inj IV SCH ×4 (01:59→19:59)
[2023-05-22] MEDS: morphine 4 MG/ML inj SYRINge IV PRN ×4 (04:34→18:45)
[2023-05-22] MEDS: dextrose 5%-lactated ringers 1,000 ML IV SCH ×2 (05:56→16:41)
[2023-05-22 06:00] VITALS: BP 148/69; PULSE 94; RESP 18; TEMP 97.8; O2SAT 90
[2023-05-22 07:01] LABS: BASOPHILS % (AUTO) 0.2 % (0-1); EOSINOPHILS # (AUTO) 0.4 X10'3 (0-0.9); EOSINOPHILS % (AUTO) 3.5 % (0-6); HEMATOCRIT 36.2 % (35.0-45.0); HEMOGLOBIN 12.2 g/dl (12.0-16.0); LYMPHOCYTES % (AUTO) 9.7 % (21-51); MEAN CORPUSCULAR HEMOGLOBIN 32.4 PG (27.0-31.0); MEAN CORPUSCULAR HGB CONC 33.8 g/dL (33.0-36.5); MEAN PLATELET VOLUME 8.4 FL (7.4-10.4); MONOCYTES # (AUTO) 0.5 X10'3 (0-0.9); MONOCYTES % (AUTO) 4.8 % (2-12); NEUTROPHILS # (AUTO) 8.8 X10'3 (1.8-7.7); NEUTROPHILS % (AUTO) 81.8 % (42-75); PLATELET COUNT 185 X10'3 (140-440); RED BLOOD COUNT 3.77 X10'6 (4.20-5.60); RED CELL DISTRIBUTION WIDTH 13.6 % (11.5-14.5); WHITE BLOOD COUNT 10.8 X10'3 (4.5-11.0)
[2023-05-22 07:14] LABS: ALANINE AMINOTRANSFERASE 44 U/L (12-78); ALBUMIN 2.4 G/DL (3.4-5.0); ALBUMIN/GLOBULIN RATIO 0.7 (1.1-1.5); ALKALINE PHOSPHATASE 101 IU/L (46-116); ANION GAP 7 (8-16); ASPARTATE AMINO TRANSFERASE 36 U/L (10-37); BILIRUBIN,TOTAL 0.5 MG/DL (0.1-1.0); BLOOD UREA NITROGEN 13 MG/DL (7-18); BUN/CREATININE RATIO 10.4 (10.0-20.0); CALCIUM 8.6 MG/DL (8.5-10.1); CHLORIDE 108 MMOL/L (99-107); CREATININE 1.25 MG/DL (0.40-0.90); GLUCOSE 127 MG/DL (70-104); MAGNESIUM 1.8 MG/DL (1.5-2.4); POTASSIUM 3.6 MMOL/L (3.5-5.1); SODIUM 145 MMOL/L (135-145); TOTAL CARBON DIOXIDE 29.8 MMOL/L (24-32); eGFR 42 ML/MIN
[2023-05-22] MEDS: K and/or MAG REPLACEMENT MC SCH ×2 (08:00→19:54)
[2023-05-22] MEDS: docusate sod 100mg capsule PO SCH ×2 (08:28→19:59)
--- NOTE | 2023-05-22 09:50 | NUR ---
Initial: Pt admit for SBO, HTN, and leukocytosis. Per EMR pt currently POD # 4 s/p exploratory laparotomy, lysis of adhesions, small bowel resection, and incisional hernia repair. Pt has been NPO since admit though receiving D5LR at 100 mL/hr providing 408 kcal/day. Per EMR LBM 05/18 and pt with hypoactive bowel sounds, currently receiving routine Colace BID and Reglan Q6H. PRN MoM also available. Recommend advancing to low fiber diet as medically indicated and initiating nutrition support if unable to advance PO diet pending return of bowel function. Will continue to follow closely. Recommendations: 1) Advance to low fiber diet as medically indicated 2) IF unable to advance PO diet pending return of bowel function initiate nutrition support: PPN if for short term, otherwise TPN (pt would need central/PICC line) 3) Routine bowel care and prokinetic agent per physician 4) Scaled weight this admit; subsequent weekly scaled weights Addendum: 05/22/23 at [address] Amended: Links added.
[2023-05-22 09:53] VITALS: BP 166/77; PULSE 100; RESP 16; TEMP 98.8; O2SAT 95
[2023-05-22 18:00] VITALS: BP 181/84; PULSE 94; RESP 14; TEMP 99.2; O2SAT 96
--- NOTE | 2023-05-22 18:00 | NUR ---
Patient in room ORTHO 4009. I have received report from DOT Owens and had the opportunity to ask questions and assume patient care.
[2023-05-22] MEDS: risperiDONE 0.5mg tablet PO SCH (19:59)
[2023-05-22] MEDS: enoxaparin 30mg/0.3ml syringe SQ SCH (20:00)
[2023-05-22 22:06] VITALS: BP 150/75; PULSE 85; RESP 16; TEMP 98.4; O2SAT 94
[2023-05-23] MEDS: dextrose 5%-lactated ringers 1,000 ML IV SCH ×2 (00:06→14:53)
[2023-05-23] MEDS: morphine 4 MG/ML inj SYRINge IV PRN ×4 (00:17→21:00)
[2023-05-23] MEDS: metoclopramide 5 mg/ml inj IV SCH ×4 (01:25→20:23)
--- NOTE | 2023-05-23 06:26 | NUR ---
Problems reprioritized. Patient report given, questions answered & plan of care reviewed with DOT Gonzalez.
--- NOTE | 2023-05-23 06:41 | NUR ---
Patient in room ORTHO 4009. I have received report from nida CHRIS and had the opportunity to ask questions and assume patient care.
[2023-05-23 06:44] VITALS: BP 178/82; PULSE 89; RESP 16; TEMP 97.3; O2SAT 93
[2023-05-23 07:12] LABS: BASOPHILS % (AUTO) 0.1 % (0-1); EOSINOPHILS # (AUTO) 0.3 X10'3 (0-0.9); EOSINOPHILS % (AUTO) 3.5 % (0-6); HEMATOCRIT 35.4 % (35.0-45.0); HEMOGLOBIN 11.8 g/dl (12.0-16.0); LYMPHOCYTES # (AUTO) 0.9 X10'3 (1.1-4.8); LYMPHOCYTES % (AUTO) 10.3 % (21-51); MEAN CORPUSCULAR HGB CONC 33.4 g/dL (33.0-36.5); MEAN CORPUSCULAR VOLUME 95.8 FL (78-98); MEAN PLATELET VOLUME 8.3 FL (7.4-10.4); MONOCYTES # (AUTO) 0.5 X10'3 (0-0.9); MONOCYTES % (AUTO) 5.4 % (2-12); NEUTROPHILS # (AUTO) 7.3 X10'3 (1.8-7.7); NEUTROPHILS % (AUTO) 80.7 % (42-75); PLATELET COUNT 189 X10'3 (140-440); RED BLOOD COUNT 3.69 X10'6 (4.20-5.60); RED CELL DISTRIBUTION WIDTH 13.9 % (11.5-14.5)
[2023-05-23 07:16] LABS: ALANINE AMINOTRANSFERASE 54 U/L (12-78); ALBUMIN 2.4 G/DL (3.4-5.0); ALBUMIN/GLOBULIN RATIO 0.7 (1.1-1.5); ALKALINE PHOSPHATASE 98 IU/L (46-116); ANION GAP 7 (8-16); ASPARTATE AMINO TRANSFERASE 37 U/L (10-37); BILIRUBIN,TOTAL 0.4 MG/DL (0.1-1.0); BLOOD UREA NITROGEN 11 MG/DL (7-18); BUN/CREATININE RATIO 9.7 (10.0-20.0); CALCIUM 8.4 MG/DL (8.5-10.1); CHLORIDE 109 MMOL/L (99-107); CREATININE 1.13 MG/DL (0.40-0.90); GLUCOSE 138 MG/DL (70-104); POTASSIUM 3.2 MMOL/L (3.5-5.1); SODIUM 145 MMOL/L (135-145); TOTAL CARBON DIOXIDE 29.5 MMOL/L (24-32); TOTAL PROTEIN 5.8 G/DL (6.4-8.2); eGFR 48 ML/MIN
[2023-05-23] MEDS: docusate sod 100mg capsule PO SCH ×2 (07:24→20:23)
[2023-05-23] MEDS: K and/or MAG REPLACEMENT MC SCH ×2 (08:00→20:20)
[2023-05-23] MEDS: amLODIPine 5mg tablet PO SCH (09:16)
[2023-05-23 10:00] VITALS: BP 183/86; PULSE 90; RESP 18; TEMP 98.4; O2SAT 96
[2023-05-23] MEDS ORDERED: ondansetron 4mg rapidly disintigrating tab PO PRN (14:00)
--- NOTE | 2023-05-23 16:36 | NUR ---
Patient seen by Dr valenzuela order given to remove SHANEL drains. Shanel drains removed intact. Tolerating clear liquid diet. Ambulated with PT see note. Morphine x2 for pain with good result. patient resting at this time. Passing gas now.
[2023-05-23] MEDS ORDERED: magnesium 4gm in 100ml NS 100 ML IV PRN (17:45)
[2023-05-23] MEDS ORDERED: potassium Cl 40MEQ/1/2NS 520ml 520 ML IV PRN (17:45)
[2023-05-23] MEDS ORDERED: potassium Cl 20 mEq SR tablet PO PRN (17:45)
[2023-05-23] MEDS ORDERED: magnesium 2GM in 50ml NS 50 ML IV PRN (17:45)
[2023-05-23] MEDS ORDERED: magnesium Cl slow-release 64mg tablet PO PRN (17:45)
[2023-05-23] MEDS: potassium Cl 20 mEq SR tablet PO PRN ×2 (17:47→22:01)
[2023-05-23 18:00] VITALS: BP 156/74; PULSE 88; RESP 16; TEMP 98.8; O2SAT 95
--- NOTE | 2023-05-23 18:27 | NUR ---
Problems reprioritized. Patient report given, questions answered & plan of care reviewed with krystal CHRIS.
[2023-05-23] MEDS: risperiDONE 0.5mg tablet PO SCH (20:23)
[2023-05-23] MEDS: enoxaparin 30mg/0.3ml syringe SQ SCH (20:24)
[2023-05-23 22:00] VITALS: BP 143/71; PULSE 95; RESP 18; TEMP 97.5; O2SAT 94
[2023-05-23 22:12] VITALS: O2SAT 94
[2023-05-24 02:00] VITALS: BP 131/74
[2023-05-24] MEDS: metoclopramide 5 mg/ml inj IV SCH ×2 (02:19→07:38)
[2023-05-24] MEDS: potassium Cl 20 mEq SR tablet PO PRN (02:19)
[2023-05-24 04:11] LABS: BASOPHILS % (AUTO) 0.3 % (0-1); EOSINOPHILS # (AUTO) 0.4 X10'3 (0-0.9); EOSINOPHILS % (AUTO) 4.2 % (0-6); HEMOGLOBIN 11.6 g/dl (12.0-16.0); LYMPHOCYTES # (AUTO) 1.1 X10'3 (1.1-4.8); LYMPHOCYTES % (AUTO) 11.8 % (21-51); MEAN CORPUSCULAR HEMOGLOBIN 31.8 PG (27.0-31.0); MEAN CORPUSCULAR HGB CONC 33.3 g/dL (33.0-36.5); MEAN CORPUSCULAR VOLUME 95.6 FL (78-98); MEAN PLATELET VOLUME 7.8 FL (7.4-10.4); MONOCYTES # (AUTO) 0.6 X10'3 (0-0.9); MONOCYTES % (AUTO) 5.8 % (2-12); NEUTROPHILS # (AUTO) 7.4 X10'3 (1.8-7.7); NEUTROPHILS % (AUTO) 77.9 % (42-75); PLATELET COUNT 195 X10'3 (140-440); RED BLOOD COUNT 3.66 X10'6 (4.20-5.60); RED CELL DISTRIBUTION WIDTH 13.5 % (11.5-14.5); WHITE BLOOD COUNT 9.6 X10'3 (4.5-11.0)
[2023-05-24 04:26] LABS: ALANINE AMINOTRANSFERASE 60 U/L (12-78); ALBUMIN 2.3 G/DL (3.4-5.0); ALBUMIN/GLOBULIN RATIO 0.7 (1.1-1.5); ALKALINE PHOSPHATASE 102 IU/L (46-116); ANION GAP 5 (8-16); ASPARTATE AMINO TRANSFERASE 38 U/L (10-37); BILIRUBIN,TOTAL 0.5 MG/DL (0.1-1.0); BLOOD UREA NITROGEN 10 MG/DL (7-18); BUN/CREATININE RATIO 8.5 (10.0-20.0); CALCIUM 8.2 MG/DL (8.5-10.1); CHLORIDE 108 MMOL/L (99-107); CREATININE 1.17 MG/DL (0.40-0.90); GLUCOSE 140 MG/DL (70-104); POTASSIUM 3.7 MMOL/L (3.5-5.1); SODIUM 142 MMOL/L (135-145); TOTAL CARBON DIOXIDE 28.8 MMOL/L (24-32); TOTAL PROTEIN 5.5 G/DL (6.4-8.2); eGFR 46 ML/MIN
--- NOTE | 2023-05-24 06:10 | NUR ---
Problems reprioritized. Patient report given, questions answered & plan of care reviewed with DOT Null.
--- NOTE | 2023-05-24 06:31 | NUR ---
Patient in room ORTHO 4009. I have received report from DOT Miramontes and had the opportunity to ask questions and assume patient care.
[2023-05-24 06:34] VITALS: BP 150/73; PULSE 85; RESP 16; TEMP 97.6; O2SAT 92
[2023-05-24 07:35] VITALS: RESP 16; O2SAT 92
[2023-05-24] MEDS: amLODIPine 5mg tablet PO SCH (07:38)
[2023-05-24] MEDS: docusate sod 100mg capsule PO SCH ×2 (07:38→19:29)
[2023-05-24] MEDS: morphine 4 MG/ML inj SYRINge IV PRN (07:38)
[2023-05-24] MEDS: K and/or MAG REPLACEMENT MC SCH ×2 (08:00→19:29)
[2023-05-24] MEDS ORDERED: HYDROcodone/acetaminophen 5mg/325mg tablet PO PRN (10:05)
[2023-05-24 10:47] VITALS: BP 137/78; PULSE 89; RESP 14; TEMP 98.3; O2SAT 94
[2023-05-24] MEDS: dextrose 5%-lactated ringers 1,000 ML IV SCH (13:00)
[2023-05-24 18:00] VITALS: BP 147/80; PULSE 110; RESP 16; TEMP 99.6; O2SAT 92
--- NOTE | 2023-05-24 18:27 | NUR ---
Problems reprioritized. Patient report given, questions answered & plan of care reviewed with DOT Miramontes.
[2023-05-24] MEDS: HYDROcodone/acetaminophen 10/325mg tab PO PRN (19:02)
[2023-05-24] MEDS: risperiDONE 0.5mg tablet PO SCH (19:34)
[2023-05-24] MEDS: enoxaparin 30mg/0.3ml syringe SQ SCH (19:34)
[2023-05-24 22:00] VITALS: BP 148/72; PULSE 90; RESP 18; TEMP 97.9; O2SAT 93
[2023-05-25] MEDS: HYDROcodone/acetaminophen 10/325mg tab PO PRN ×2 (02:29→20:37)
[2023-05-25 06:00] VITALS: BP 137/55; PULSE 84; RESP 16; TEMP 98; O2SAT 94
--- NOTE | 2023-05-25 06:32 | NUR ---
Problems reprioritized. Patient report given, questions answered & plan of care reviewed with DANDRE Stockton.
[2023-05-25 07:00] LABS: BASOPHILS % (AUTO) 0.2 % (0-1); EOSINOPHILS # (AUTO) 0.5 X10'3 (0-0.9); EOSINOPHILS % (AUTO) 4.8 % (0-6); HEMATOCRIT 34.4 % (35.0-45.0); HEMOGLOBIN 11.6 g/dl (12.0-16.0); LYMPHOCYTES # (AUTO) 1.9 X10'3 (1.1-4.8); LYMPHOCYTES % (AUTO) 16.4 % (21-51); MEAN CORPUSCULAR HEMOGLOBIN 31.9 PG (27.0-31.0); MEAN CORPUSCULAR HGB CONC 33.6 g/dL (33.0-36.5); MEAN CORPUSCULAR VOLUME 94.8 FL (78-98); MEAN PLATELET VOLUME 8.3 FL (7.4-10.4); MONOCYTES # (AUTO) 0.6 X10'3 (0-0.9); MONOCYTES % (AUTO) 5.4 % (2-12); NEUTROPHILS # (AUTO) 8.3 X10'3 (1.8-7.7); NEUTROPHILS % (AUTO) 73.2 % (42-75); PLATELET COUNT 202 X10'3 (140-440); RED BLOOD COUNT 3.63 X10'6 (4.20-5.60); RED CELL DISTRIBUTION WIDTH 13.7 % (11.5-14.5); WHITE BLOOD COUNT 11.3 X10'3 (4.5-11.0)
[2023-05-25 07:10] LABS: ALANINE AMINOTRANSFERASE 50 U/L (12-78); ALBUMIN 2.3 G/DL (3.4-5.0); ALBUMIN/GLOBULIN RATIO 0.7 (1.1-1.5); ALKALINE PHOSPHATASE 91 IU/L (46-116); ANION GAP 10 (8-16); ASPARTATE AMINO TRANSFERASE 27 U/L (10-37); BILIRUBIN,TOTAL 0.3 MG/DL (0.1-1.0); BLOOD UREA NITROGEN 10 MG/DL (7-18); BUN/CREATININE RATIO 8.8 (10.0-20.0); CALCIUM 8.7 MG/DL (8.5-10.1); CHLORIDE 108 MMOL/L (99-107); CREATININE 1.14 MG/DL (0.40-0.90); GLUCOSE 123 MG/DL (70-104); POTASSIUM 3.6 MMOL/L (3.5-5.1); SODIUM 144 MMOL/L (135-145); TOTAL CARBON DIOXIDE 26.1 MMOL/L (24-32); TOTAL PROTEIN 5.4 G/DL (6.4-8.2); eGFR 47 ML/MIN
[2023-05-25] MEDS: amLODIPine 5mg tablet PO SCH (07:58)
[2023-05-25] MEDS: docusate sod 100mg capsule PO SCH ×2 (07:58→20:00)
[2023-05-25 08:00] VITALS: RESP 17; O2SAT 99
[2023-05-25] MEDS: K and/or MAG REPLACEMENT MC SCH ×2 (08:00→20:00)
[2023-05-25 10:00] VITALS: BP 140/69; PULSE 92; RESP 17; TEMP 98.5; O2SAT 99
[2023-05-25] MEDS: dextrose 5%-lactated ringers 1,000 ML IV SCH (10:33)
[2023-05-25 18:00] VITALS: BP 131/51; PULSE 85; RESP 21; TEMP 98.2; O2SAT 94
--- NOTE | 2023-05-25 18:00 | NUR ---
I have reviewed and agree with interventions, assessments,and documentation by Kath Brarow LVN.
[2023-05-25] MEDS ORDERED: RISP1TAB98 PO (18:30)
--- NOTE | 2023-05-25 18:31 | NUR ---
Problems reprioritized. Patient report given, questions answered & plan of care reviewed with Oanh JULIEN.
[2023-05-25] MEDS: enoxaparin 30mg/0.3ml syringe SQ SCH (20:37)
[2023-05-25] MEDS: risperiDONE 0.5mg tablet PO SCH (20:37)
[2023-05-25 22:00] VITALS: BP 123/69; PULSE 83; RESP 16; TEMP 97.8; O2SAT 92
[2023-05-26] MEDS: HYDROcodone/acetaminophen 10/325mg tab PO PRN ×2 (01:12→07:58)
[2023-05-26 06:00] VITALS: BP 123/59; PULSE 62; RESP 18; TEMP 98; O2SAT 92
--- NOTE | 2023-05-26 06:09 | NUR ---
Problems reprioritized. Patient report given, questions answered & plan of care reviewed with MELY AMOS.
--- NOTE | 2023-05-26 06:30 | NUR ---
I have reviewed and agree with all interventions, assessments performed and documented by DANDRE RODRIGUEZ.
[2023-05-26 06:49] LABS: BASOPHILS % (AUTO) 0.3 % (0-1); EOSINOPHILS # (AUTO) 0.6 X10'3 (0-0.9); EOSINOPHILS % (AUTO) 5.8 % (0-6); HEMATOCRIT 36.9 % (35.0-45.0); HEMOGLOBIN 12.3 g/dl (12.0-16.0); LYMPHOCYTES # (AUTO) 1.7 X10'3 (1.1-4.8); LYMPHOCYTES % (AUTO) 15.7 % (21-51); MEAN CORPUSCULAR HEMOGLOBIN 31.8 PG (27.0-31.0); MEAN CORPUSCULAR HGB CONC 33.2 g/dL (33.0-36.5); MEAN CORPUSCULAR VOLUME 95.7 FL (78-98); MEAN PLATELET VOLUME 8.3 FL (7.4-10.4); MONOCYTES # (AUTO) 0.7 X10'3 (0-0.9); MONOCYTES % (AUTO) 6.7 % (2-12); NEUTROPHILS # (AUTO) 7.5 X10'3 (1.8-7.7); NEUTROPHILS % (AUTO) 71.5 % (42-75); PLATELET COUNT 225 X10'3 (140-440); RED BLOOD COUNT 3.86 X10'6 (4.20-5.60); RED CELL DISTRIBUTION WIDTH 14.1 % (11.5-14.5); WHITE BLOOD COUNT 10.5 X10'3 (4.5-11.0)
[2023-05-26 07:06] LABS: ALANINE AMINOTRANSFERASE 47 U/L (12-78); ALBUMIN 2.7 G/DL (3.4-5.0); ALBUMIN/GLOBULIN RATIO 0.8 (1.1-1.5); ALKALINE PHOSPHATASE 105 IU/L (46-116); ANION GAP 9 (8-16); ASPARTATE AMINO TRANSFERASE 22 U/L (10-37); BILIRUBIN,TOTAL 0.4 MG/DL (0.1-1.0); BLOOD UREA NITROGEN 13 MG/DL (7-18); BUN/CREATININE RATIO 9.7 (10.0-20.0); CALCIUM 8.9 MG/DL (8.5-10.1); CHLORIDE 105 MMOL/L (99-107); CREATININE 1.34 MG/DL (0.40-0.90); GLUCOSE 132 MG/DL (70-104); POTASSIUM 3.5 MMOL/L (3.5-5.1); SODIUM 140 MMOL/L (135-145); TOTAL CARBON DIOXIDE 25.7 MMOL/L (24-32); TOTAL PROTEIN 6.1 G/DL (6.4-8.2); eGFR 39 ML/MIN
[2023-05-26] MEDS: K and/or MAG REPLACEMENT MC SCH (07:49)
[2023-05-26] MEDS: docusate sod 100mg capsule PO SCH (07:50)
[2023-05-26] MEDS: amLODIPine 5mg tablet PO SCH (07:54)
[2023-05-26 08:00] VITALS: RESP 18; O2SAT 92
[2023-05-26 10:00] VITALS: BP 118/73; PULSE 75; RESP 17; TEMP 97.9; O2SAT 95
[2023-05-26] MEDS ORDERED: HYDR-3965 PO (10:38)
[2023-05-26] MEDS ORDERED: NOR5T PO (10:38)
--- NOTE | 2023-05-26 14:00 | NUR ---
I have reviewed and agree with interventions, assessments, and documentation by Kath Barrow LVN.
--- NOTE | 2023-05-26 14:37 | NUR ---
Patient discharged home via cab. Personal belongings sent with including wallet that was kept in the safe. Questions answered, walker sent home with. Alert and appropriate at the time of discharge.
== END 2023-05-26 15:05 | disposition home or self-care (01) | DRG 853 ==
LOC: ER 08:41 → ED HOLD 13:43 → ORTHO 4S 21:12
PROVIDERS: ADMIT Family Medicine; ATTEND Family Medicine
PROC: 0DNW0ZZ Release Peritoneum, Open Approach (ICD-10-PCS; 2023-05-18)
PROC: 0WQF0ZZ Repair Abdominal Wall, Open Approach (ICD-10-PCS; 2023-05-18)
PROC: 3E0T3BZ Introduction of Anesthetic Agent into Peripheral Nerves and Plexi, Percutaneous Approach (ICD-10-PCS; 2023-05-18)
PROC: 3E0T33Z Introduction of Anti-inflammatory into Peripheral Nerves and Plexi, Percutaneous Approach (ICD-10-PCS; 2023-05-18)
PROC: 0D9670Z Drainage of Stomach with Drainage Device, Via Natural or Artificial Opening (ICD-10-PCS; 2023-05-18)
PROC: 0DB80ZZ Excision of Small Intestine, Open Approach (ICD-10-PCS; principal; 2023-05-18 17:51)
DX: A41.9 Sepsis, unspecified organism (principal); K65.9 Peritonitis, unspecified; K56.52 Intestinal adhesions [bands] with complete obstruction; I50.32 Chronic diastolic (congestive) heart failure; N17.9 Acute kidney failure, unspecified; N39.0 Urinary tract infection, site not specified; I13.0 Hypertensive heart and chronic kidney disease with heart failure and stage 1 through stage 4 chronic kidney disease, or unspecified chronic kidney disease; K91.89 Other postprocedural complications and disorders of digestive system; Z68.41 Body mass index [BMI] 40.0-44.9, adult; K56.7 Ileus, unspecified; Z20.822 Contact with and (suspected) exposure to COVID-19; E66.01 Morbid (severe) obesity due to excess calories; E86.0 Dehydration; N18.30 Chronic kidney disease, stage 3 unspecified; B96.20 Unspecified Escherichia coli [E. coli] as the cause of diseases classified elsewhere; F29 Unspecified psychosis not due to a substance or known physiological condition; K43.2 Incisional hernia without obstruction or gangrene; Z79.899 Other long term (current) drug therapy; Z90.710 Acquired absence of both cervix and uterus; Z59.00 Homelessness unspecified; Z90.49 Acquired absence of other specified parts of digestive tract
CPT/HCPCS: 36415; 71045; 74176; 80053; 81001; 83690; 83735; 84484; 85025; 85610; 85730; 86885; 86900; 86901; 87070; 87075; 87077; 87081; 87088; 87186; 87811; 88302; 88307; 93005; 93971; 97110; 97116; 97161; 97530; 97535; 99285; A4615; A4618; A6209; A6213; A6258; A6402; A7000; C1758; C9290; G0378; J0131; J0360; J0694; J0696; J1100; J1650; J2270; J2405; J2543; J2704; J2710; J2765; J3010; J3490; J7030; J7120; J7121

== ENCOUNTER 2023-10-08 11:19 | Emergency (ER) | payer BC ==
[~2023-10-08] VITALS: Ht 160 cm; Wt 93.2 kg
[~2023-10-08 11:19] MED LIST changes: +NOR5T PO; -ONDA4TAB12 PO; -PANT40TA54 PO; +RISP1TAB98 PO
[2023-10-08] MEDS ORDERED: ALBU18HF2 INH (13:56)
[2023-10-08] MEDS ORDERED: METH4TAB81 PO (13:56)
[2023-10-08 14:26] VITALS: BP 130/68; PULSE 94; RESP 18; TEMP 98.2; O2SAT 95
== END 2023-10-08 14:32 | disposition home or self-care (01) ==
LOC: ER 11:20
DX: J20.9 Acute bronchitis, unspecified (principal); Z20.822 Contact with and (suspected) exposure to COVID-19; I10 Essential (primary) hypertension; Z90.49 Acquired absence of other specified parts of digestive tract
CPT/HCPCS: 36415; 87502; 87503; 87811; 99283

== ENCOUNTER 2023-10-16 10:25 | Emergency (ER) | payer BC ==
[~2023-10-16] VITALS: Ht 160 cm; Wt 94.6 kg
[~2023-10-16 10:25] MED LIST changes: +ALBU18HF2 INH; +METH4TAB81 PO
[2023-10-16 10:34] VITALS: BP 158/87; PULSE 85; RESP 16; TEMP 98.7; O2SAT 97
[2023-10-16] MEDS ORDERED: METH4TAB81 PO (11:00)
[2023-10-16] MEDS ORDERED: AZIT250T27 PO (11:00)
== END 2023-10-16 11:13 | disposition home or self-care (01) ==
LOC: ER 10:25
DX: J20.9 Acute bronchitis, unspecified (principal)
CPT/HCPCS: 99283